=== PATIENT | male | born 1950 | race Two or more races ===

== ENCOUNTER 2023-03-07 14:15 | Outpatient (REF) | payer MEDICARE, OTHER, SELFPAY ==
[2023-03-07 15:47] LABS: MANUAL DIFF FLAG NO
[2023-03-07 16:01] LABS: Basophils Absolute Auto 0.1 X10*3/uL (0.0-0.2); Basophils Percent Auto 0.7 % (0-2); Eosinophils Percent Auto 10.8 % (0-4); Hematocrit 40.8 % (42.0-52.0); Hemoglobin 13.7 g/dl (14.0-18.0); Imm Gran Abs Auto 0.03 X10*3/uL (0.00-0.03); Imm Gran Pct Auto 0.3 % (0.0-0.4); Lymphocytes Absolute Auto 1.2 X10*3/uL (1.2-4.9); Lymphocytes Percent Auto 13.9 % (20-40); Mean Corpuscular HGB Conc 33.6 g/dl (31.0-36.0); Mean Corpuscular Hemoglobin 28.8 pg (27.0-33.0); Mean Corpuscular Volume 85.9 fL (80.0-98.0); Mean Platelet Volume 9.8 fL (9.4-12.4); Monocytes Absolute Auto 0.8 X10*3/uL (0.1-1.2); Neutrophils Absolute Auto 5.8 x10*3/uL (2.0-8.3); Neutrophils Percent Auto 65.3 % (45-73); Platelet Count 347 X10*3/uL (160-400); Red Blood Count 4.75 X10*6/uL (4.60-5.80); Red Cell Distribution Width 13.4 % (11.0-16.0); White Blood Count 8.9 X10*3/uL (4.8-10.8)
[2023-03-07 16:38] LABS: Alanine Aminotransferase 12 U/L (0-40); Albumin Level 4.1 g/dL (3.5-5.0); Alkaline Phosphatase 72 U/L (39-117); Anion Gap 12 (12-20); Aspartate Amino Transferase 15 U/L (5-37); Bilirubin Total 0.3 mg/dL (0.0-1.0); Blood Urea Nitrogen 21 mg/dL (9-16); C Reactive Protein 1.65 mg/dL (< or = 0.50); Calcium 9.1 mg/dL (8.4-10.2); Carbon Dioxide 25 mmol/L (22-29); Chloride 107 mmol/L (96-108); Estimated Glomerular Filt Rate 56; Glucose Random 122 mg/dL (60-115); Potassium 4.3 mmol/L (3.3-5.1); Sodium 140 mmol/L (135-145); Total Protein 6.5 g/dL (6.5-8.0)
[2023-03-07 16:42] LABS: Erythrocyte Sedimentation Rate 8 MM/HR (0-15)
[2023-03-07 16:44] LABS: Troponin-I High Sensitivity 4.4 ng/L (<3.5-35.0)
[2023-03-07 17:50] LABS: Appearance Urine Clear; Color Urine Dark Yellow; Glucose Urine UA Negative (Negative); Leukocyte Esterase Urine Negative (Negative); Nitrite Urine Negative (Negative); PH 5.5 (5.0-9.0); Specific Gravity - Urine >= 1.030 (1.005-1.025); Urine Blood Negative (Negative); Urine Ketones Negative (Negative); Urine Protein Trace mg/dL (Neg-Trace)
[2023-03-07 17:53] LABS: Bacteria Urine None Seen (None Seen); RBC Urine 0-2 /HPF (0-2); Squamous Epithelial Cell Urine 0-2 /HPF (0-2); WBC Urine 0-5 /HPF (0-5)
[2023-03-07 23:14] LABS: Protein/Creatinine Ratio, Ur 0.05 (<0.2); Total Protein Urine Random 16 mg/dL (<12)
[2023-03-08 08:29] LABS: HBS Num1 0.15 mIU/mL (0-7.99); HBc Num1 0.16 S/CO (0.00-0.79); HBsAGNum1 0.37 S/CO (0.00-0.99); Hepatitis A Antibody IgM 0.15 Index (0-0.79); Hepatitis B Core Antibody Nonreactive (Nonreactive); Hepatitis B Surface Antigen Negative (Negative); ~HepC Num1 0.19 S/CO (0.00-0.79); ~Hepatitis A Antibody IgM Nonreactive (Nonreactive); ~Hepatitis B Surface Antibody NONREACTIVE (Nonreactive); ~Hepatitis C Antibody Nonreactive (Nonreactive)
[2023-03-08 14:13] LABS: Complement C3 108 mg/dL (82-185)
[2023-03-09 16:58] LABS: TS Negative Control Passed; TS Panel A 0; TS Panel B 2; TS Positive Control Passed; TSpotTB Negative (Negative)
[2023-03-11 18:38] LABS: Lyme Abs Screen <0.90 index
[2023-03-12 23:43] LABS: Prot Elec - Albumin 3.9 g/dL (3.8-4.8); Prot Elec - Alpha1 0.3 g/dL (0.2-0.3); Prot Elec - Alpha2 0.7 g/dL (0.5-0.9); Prot Elec - Beta 1 0.4 g/dL (0.4-0.6); Prot Elec - Beta 2 0.3 g/dL (0.2-0.5); Prot Elec - Gamma 0.9 g/dL (0.8-1.7); Prot Elec - Total Protein 6.5 g/dL (6.1-8.1)
[2023-03-13 09:08] LABS: IgA 149 mg/dL (70-320); IgG 1106 mg/dL (600-1540); IgM 76 mg/dL (50-300)
[2023-03-13 13:33] LABS: DNAds, Crithidia Antibody Negative (Negative)
[2023-03-13 21:48] LABS: HLA B27 Negative (Negative)
[2023-03-14 17:10] LABS: Anti DNA DS Antibody 9 IU/mL; Antibody to SS-A Antigen <1.0 NEG AI (<1.0 NEG); Antibody to SS-B Antigen <1.0 NEG AI (<1.0 NEG); Myeloperoxidase Antibody 13.4 AI; Proteinase 3 PR3 Antibodies <1.0 AI
== END 2023-03-07 14:16 | disposition home or self-care (01) ==
LOC: HO.LAB 14:15
PROVIDERS: PCP Physician Assistant; Visit Provider Student in an Organized Health Care Education/Training Program
DX: M25.542 Pain in joints of left hand (principal); M32.9 Systemic lupus erythematosus, unspecified; I77.6 Arteritis, unspecified; D89.1 Cryoglobulinemia; I31.9 Disease of pericardium, unspecified; G89.29 Other chronic pain; M54.9 Dorsalgia, unspecified; K63.9 Disease of intestine, unspecified; M07.60 Enteropathic arthropathies, unspecified site; Z11.7 Encounter for testing for latent tuberculosis infection; Z11.59 Encounter for screening for other viral diseases; Z72.89 Other problems related to lifestyle
CPT/HCPCS: 80053; 81001; 82550; 82595; 82784; 84156; 84165; 84484; 85025; 85652; 86021; 86140; 86160; 86225; 86235; 86255; 86334; 86481; 86617; 86618; 86704; 86706; 86709; 86803; 86812; 87340; 99202

== ENCOUNTER 2023-06-12 14:39 | Outpatient (AMB) | payer MEDICARE, OTHER, SELFPAY ==
--- NOTE | 2023-06-12 14:48 | A.OFFVIS_ITS ---
Intake Vital Signs 06/12/23 14:49 Height 5 ft 8 in Weight 181 lb 10.574 oz BMI 27.6 BP 120/70 Blood Pressure Location Rt brachial Position Sitting Pulse 81 Pulse Source Pulse Oximeter Temp 97.8 F Temp Source Skin Pulse Oximetry (%) 96 Intake Visit Reasons: PsA Intake Note: * Pt seen today for PsA follow up. Last seen in February * C/o flare up mid April. * States fingers are worse Financial Adviser Required: No Accompanied by: Spouse Allergies bee venom protein (honey bee) Adverse Reaction (Unknown, Verified 06/12/23 14:54) Unknown Medication List - Last Reconciled 06/12/23 by Roxanne Cisse MD aspirin 325 mg PO DAILY triamcinolone acetonide 0.1% appl topical HPI HPI Comments History of Present Illness Details 72-year-old male with inflammatory arthritis returns for follow-up. Doing about the same overall. Continues to get attacks of pain and stiffness of his hands and forearms. Rapidly resolved with prednisone 20 mg for 2 days. Also the rashes on his fingers rapidly resolve with prednisone. Initial history: This is a 72-year-old male who presents for evaluation of multiple joint pain and swelling. The condition started years ago with pain and swelling affecting 1 joint or multiple joints at the same time like his elbow, wrist, hands, fingers, knees, ankles, feet. The pain lasts a few days to 1 week. Patient usually takes ibuprofen 600 mg 3 to 4 times a day with rapid resolution of the pain in 1-2 days but the swelling persists for about a week. He states that those flares have become much more frequent recently. Towards the end of last year he went to urgent care due to swelling from his left wrist going all the way up to his forearm. He was prescribed antibiotics with improvement in about 1 week. In the past he was prescribed prednisone by his PCP for similar attacks of joint pain with dramatic improvement. He states that 10 years ago he was having intermittent severe chest pain. He went to urgent care and was told he might have pericarditis and was advised to take high doses of by ibuprofen which gave him dramatic relief. He states that he still gets those attacks of chest pain 2 to 3 times a year rapidly resolved with ibuprofen. He mentions that he gets skin rashes in the umbilicus and lower abdomen as well as rashes on his fingers. Those were never formally assessed by a physician assistant surgery. Patient gets low back pain. Sometimes worse in the morning associated with stiffness, the stiffness can last all day. Patient also mentions that he is quite active. [place] takes care of horses, cats, dogs and his who has dementia. States that his daughter has Jin's thyroiditis and 2 sons have Crohn's disease. He denies any fevers or weight changes. Denies any blood or froth in urine. Most recent colonoscopy 2017 was unremarkable [facility] Medical History (Updated 06/12/23 @ 15:20 by Roxanne Cisse MD) Acute ill-defined cerebrovascular disease Acute pericarditis, unspecified Atopic dermatitis Diverticulitis of colon Ostium secundum type atrial septal defect P-ANCA and MPO antibodies positive Patent foramen ovale Pericarditis Surgical History Hx of tonsillectomy S/P colonoscopy Family History Maternal Grandmother Diabetes Sister Hx of breast cancer Hodgkin lymphoma Father Stomach disorder Daughter Jin's thyroiditis Son Crohn disease Son Crohn disease Social History Alcohol intake: current Alcohol intake frequency: holidays/special occasions only Patient Tobacco Use Status: Never used Tobacco Current occupational status: retired Current occupation: software development specialist [place] [facility] [place] arthralgias, Reports joint swelling and Reports stiffness Skin/Breast Reports rash Physical Exam Vital Signs: Last Vital Signs Temp 97.8 F 06/12/23 14:49 Pulse 81 06/12/23 14:49 BP 120/70 06/12/23 14:49 Pulse Ox 96 06/12/23 14:49 BMI result Body Mass Index 27.6 Const General: cooperative, healthy appearing and comfortable Nutritional Appearance: overweight Orientation/consciousness: patient oriented x3 Limitations: no limitations HEENT Head: Yes normocephalic and Yes atraumatic Resp Effort & Inspection: normal respiratory effort and able to speak in complete sentences Skin Other: Flaky scaly rash on the outer aspect of his right little finger, similar rash on his right thumb. Rashes on the umbilicus Neuro General: patient oriented x3 Extrem Other: Bilateral hyperextensible PIPs Results Reviewed Results Reviewed: Labs 09/2022? Shobha 1/SSA/SSB/Moss/TRANSPORTATION DEPARTMENT HEAD/HLA B27/CCP/RF/TPO all -ve DsDNA 9 (5-9) is indeterminate SWATI 1-320 homogeneous C4 8.8 (17.4-52.2) C3 96 CRP 4.8 (0-9.0) ESR 5 CPK 42 (35-232) Uric acid 6.0 CMP unremarkable TSH 2.49 FT4 1.3 CBC unremarkable except for:?? Mild lymphopenia 1.27 (1.32-3.57) Mild eosinophilia 0.86 (-.04-0.54) Assessment & Plan Assessment & Plan (1) Psoriatic arthritis: Code(s): L40.50 - Arthropathic psoriasis, unspecified Plan: This is a 72-year-old male who presents of multiple year history of recurrent attacks of migratory and sometimes additive inflammatory arthritis that resolves with NSAIDs or Prednsione. Positive family history of Jin thyroiditis in his daughter and 2 sons with Crohn's disease.? He has history of recurrent chest pain that was attributed to pericarditis resolves with high-dose ibuprofen but without formal evaluation. On exam he has rashes that are suspicious for psoriasis.? labs show positive SWATI, borderline dsDNA, low C4 with normal C3 and positive MPO.? RF/CCP negative, high inflammatory markers. 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 Patient agreed to proceed. Start methotrexate 20 mg once weekly plus folic acid 1 mg daily. If patient develops recurrent chest pain, will order a 2D echo. Advised patient to establish care with a physician assistant surgery to evaluate skin lesions on his fingers (2) P-ANCA and MPO antibodies positive: Code(s): R76.8 - Other specified abnormal immunological findings in serum Plan: Positive MPO antibodies, but no symptoms suggestive of vasculitis. Can be seen in IBD and spondyloarthropathies and other autoimmune rheumatic diseases. 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 Will monitor patient for side effects with frequent lab work. Advised patient to take folic acid daily to prevent complications of methotrexate. Plan I spent 26 minutes reviewing patient's chart, evaluating patient, ordering diagnostic workup, counseling patient and documenting in the chart Orders: Orders Complete Blood Count Auto Diff 6 Weeks L40.50 - Arthropathic psoriasis, unspecified Comprehensive Met. Panel 6 Weeks L40.50 - Arthropathic psoriasis, unspecified C Reactive Protein 6 Weeks L40.50 - Arthropathic psoriasis, unspecified Erythrocyte Sedimentation Rate 6 Weeks L40.50 - Arthropathic psoriasis, unspecified Complete Blood Count Auto Diff 12 Weeks L40.50 - Arthropathic psoriasis, unspecified Comprehensive Met. Panel 12 Weeks L40.50 - Arthropathic psoriasis, unspecified C Reactive Protein 12 Weeks L40.50 - Arthropathic psoriasis, unspecified Erythrocyte Sedimentation Rate 12 Weeks L40.50 - Arthropathic psoriasis, unspecified Medications: New methotrexate sodium 20 mg (8 x 2.5 mg) PO QWEEK 96 tabs 0RF folic acid 1 mg PO DAILY 90 tabs 1RF Coding Level of Care Code Est Pt Level 4 (19619) Diagnoses Psoriatic arthritis L40.50 P-ANCA and MPO antibodies positive R76.8 intermediate methotrexate user Z79.631
[2023-06-12 14:49] VITALS: BP 120/70; PULSE 81; TEMP 36.6; O2SAT 96; BMI 27.6
== END 2023-06-12 15:11 | disposition home or self-care (01) ==
PROVIDERS: PCP Physician Assistant; Visit Provider Student in an Organized Health Care Education/Training Program
DX: L40.50 Arthropathic psoriasis, unspecified (principal); R76.8 Other specified abnormal immunological findings in serum; Z79.631 Long term (current) use of antimetabolite agent
CPT/HCPCS: 99214

== ENCOUNTER → 2023-06-12 14:39 | Outpatient (BNVA) | payer MEDICARE, OTHER, SELFPAY | PROVIDERS: PCP Physician Assistant; Visit Provider Student in an Organized Health Care Education/Training Program | DX: L40.50 Arthropathic psoriasis, unspecified (principal); R76.8 Other specified abnormal immunological findings in serum; Z79.631 Long term (current) use of antimetabolite agent | CPT/HCPCS: 99212 ==

== ENCOUNTER 2023-09-11 14:00 | Outpatient (AMB) | payer MEDICARE, OTHER, SELFPAY ==
--- NOTE | 2023-09-11 14:00 | A.OFFVIS_ITS ---
Intake Vital Signs 09/11/23 14:01 Height 5 ft 8 in Weight 179 lb 14.355 oz BMI 27.4 BP 108/70 Blood Pressure Location Lt brachial Position Sitting Pulse 78 Pulse Source Pulse Oximeter Temp 97.5 F Temp Source Skin Pulse Oximetry (%) 98 Oxygen Delivery Method Room Air Intake Visit Reasons: PSA Intake Note: Patient presents today to follow up on PsA. Allergies bee venom protein (honey bee) Adverse Reaction (Unknown, Verified 06/12/23 14:54) Unknown Medication List - Last Reconciled 09/11/23 by Roxanne Cisse MD aspirin 325 mg PO DAILY folic acid 1 mg PO DAILY methotrexate sodium 20 mg (8 x 2.5 mg) PO QWEEK HPI HPI Comments History of Present Illness Details 72-year-old male with psoriatic arthriti s presents for follow-up. Has been taking methotrexate 8 tabs weekly since last visit. States that he feels much better overall. Flares of joint pain are much less frequent. He had to use ibuprofen only 3 times since last visit. Rash on his right hand completely resolved. Gets very mild fatigue day after he takes methotrexate Initial history: This is a 72-year-old male who presents for evaluation of multiple joint pain and swelling. The condition started years ago with pain and swelling affecting 1 joint or multiple joints at the same time like his elbow, wrist, hands, fingers, knees, ankles, feet. The pain lasts a few days to 1 week. Patient usually takes ibuprofen 600 mg 3 to 4 times a day with rapid resolution of the pain in 1-2 days but the swelling persists for about a week. He states that those flares have become much more frequent recently. Towards the end of last year he went to urgent care due to swelling from his left wrist going all the way up to his forearm. He was prescribed antibiotics with improvement in about 1 week. In the past he was prescribed prednisone by his PCP for similar attacks of joint pain with dramatic improvement. He states that 10 years ago he was having intermittent severe chest pain. He went to urgent care and was told he might have pericarditis and was advised to take high doses of by ibuprofen which gave him dramatic relief. He states that he still gets those attacks of chest pain 2 to 3 times a year rapidly resolved with ibuprofen. He mentions that he gets skin rashes in the umbilicus and lower abdomen as well as rashes on his fingers. Those were never formally assessed by a pneumatic tube repairer. Patient gets low back pain. Sometimes worse in the morning associated with stiffness, the stiffness can last all day. Patient also mentions that he is quite active. [place] takes care of horses, cats, dogs and his who has dementia. States that his daughter has Jin's thyroiditis and 2 sons have Crohn's disease. He denies any fevers or weight changes. Denies any blood or froth in urine. Most recent colonoscopy 2017 was unremarkable [facility] Medical History P-ANCA and MPO antibodies positive Pericarditis Ostium secundum type atrial septal defect Patent foramen ovale Atopic dermatitis Diverticulitis of colon Acute ill-defined cerebrovascular disease Acute pericarditis, unspecified Surgical History Hx of tonsillectomy S/P colonoscopy Family History Maternal Grandmother Diabetes Sister Hx of breast cancer Hodgkin lymphoma Father Stomach disorder Daughter Jin's thyroiditis Son Crohn disease Son Crohn disease Social History Alcohol intake: current Alcohol intake frequency: holidays/special occasions only Patient Tobacco Use Status: Never used Tobacco Current occupational status: retired 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 Review of Systems [facility] [place] Denies arthralgias and Denies joint swelling Skin/Breast Denies rash Physical Exam Vital Signs: Last Vital Signs Temp 97.5 F 09/11/23 14:01 Pulse 78 09/11/23 14:01 BP 108/70 09/11/23 14:01 Pulse Ox 98 09/11/23 14:01 Oxygen Delivery Method Room Air 09/11/23 14:01 BMI result Body Mass Index 27.4 Const General: cooperative, healthy appearing and comfortable Nutritional Appearance: overweight Orientation/consciousness: patient oriented x3 Limitations: no limitations HEENT Head: Yes normocephalic and Yes atraumatic Resp Effort & Inspection: normal respiratory effort and able to speak in complete sentences Skin Other: Rashes on his hands entirely resolved Neuro General: patient oriented x3 Extrem Other: Bilateral hyperextensible PIPs Results Reviewed Results Reviewed: Labs 09/2022? Shobha 1/SSA/SSB/Moss/RESOURCE MANAGEMENT SPECIALIST/HLA B27/CCP/RF/TPO all -ve DsDNA 9 (5-9) is indeterminate SWATI 1-320 homogeneous C4 8.8 (17.4-52.2) C3 96 CRP 4.8 (0-9.0) ESR 5 CPK 42 (35-232) Uric acid 6.0 CMP unremarkable TSH 2.49 FT4 1.3 CBC unremarkable except for:?? Mild lymphopenia 1.27 (1.32-3.57) Mild eosinophilia 0.86 (-.04-0.54) Assessment & Plan Assessment & Plan (1) Psoriatic arthritis: Comment: dx 05/2023 MTX 05/2023 effective Code(s): L40.50 - Arthropathic psoriasis, unspecified Plan: This is a 72-year-old male with psoriatic arthritis who presents for follow-up. Doing much better on methotrexate 20 mg weekly, much less flares of inflammatory arthritis and skin rash entirely resolved. Inflammatory markers trending down Continue methotrexate 20 mg weekly but split dose 12:24 hours apart. Continue folic acid 1 mg daily Labs before next visit in 3 months (2) P-ANCA and MPO antibodies positive: Code(s): R76.8 - Other specified abnormal immunological findings in serum Plan: Positive MPO antibodies, but no symptoms suggestive of vasculitis. Can be seen in IBD and spondyloarthropathies and other autoimmune rheumatic diseases. (3) residential methotrexate user: Code(s): Z79.631 - residential (current) use of antimetabolite agent Plan: Monitor safety labs (4) Immunization counseling: Code(s): Z71.85 - Encounter for immunization safety counseling Plan: Discussed ACR vaccination guidelines for adults with autoimmune rheumatic disease. Patient will have his flu shot and COVID booster this week. Advised patient to hold methotrexate for 1 dose after the vaccine Plan I spent 26 minutes reviewing patient's chart, evaluating patient, ordering diagnostic workup, counseling patient and documenting in the chart Orders: Orders Complete Blood Count Auto Diff 3 Months Z79.631 - order entry specialist (current) use of antimetabolite agent Erythrocyte Sedimentation Rate 3 Months Z79.631 - order entry specialist (current) use of antimetabolite agent Comprehensive Met. Panel 3 Months Z79.631 - order entry specialist (current) use of antimetabolite agent C Reactive Protein 3 Months Z79.631 - order entry specialist (current) use of antimetabolite agent Medications: Changed From methotrexate sodium 20 mg (8 x 2.5 mg) PO QWEEK 96 tabs 0RF To methotrexate sodium split dose into 4 tabs twice 12-24 hours apart 20 mg (8 x 2.5 mg) PO QWEEK 96 tabs 0RF Refilled folic acid 1 mg PO DAILY 90 tabs 1RF Coding Level of Care Code Est Pt Level 4 (53230) Diagnoses Psoriatic arthritis L40.50 P-ANCA and MPO antibodies positive R76.8 order entry specialist methotrexate user Z79.631 Immunization counseling Z71.85
[2023-09-11 14:01] VITALS: BP 108/70; PULSE 78; TEMP 36.4; O2SAT 98; BMI 27.4
== END 2023-09-11 14:17 | disposition home or self-care (01) ==
PROVIDERS: PCP Physician Assistant; Visit Provider Student in an Organized Health Care Education/Training Program
DX: L40.50 Arthropathic psoriasis, unspecified (principal); R76.8 Other specified abnormal immunological findings in serum; Z79.631 Long term (current) use of antimetabolite agent; Z71.85 Encounter for immunization safety counseling
CPT/HCPCS: 99214

== ENCOUNTER → 2023-09-11 14:00 | Outpatient (BNVA) | payer MEDICARE, OTHER, SELFPAY | PROVIDERS: PCP Physician Assistant; Visit Provider Student in an Organized Health Care Education/Training Program | DX: L40.50 Arthropathic psoriasis, unspecified (principal); R76.8 Other specified abnormal immunological findings in serum; Z79.631 Long term (current) use of antimetabolite agent; Z71.85 Encounter for immunization safety counseling | CPT/HCPCS: 99212 ==

== ENCOUNTER 2023-12-18 14:02 | Outpatient (AMB) | payer MEDICARE, OTHER, SELFPAY ==
--- NOTE | 2023-12-18 14:06 | MHC.OFFVIS ---
Intake Vital Signs 12/18/23 14:11 Height 5 ft 8 in Weight 176 lb 5.917 oz BMI 26.8 BP 140/62 H Blood Pressure Location Rt brachial Position Sitting Pulse 80 Pulse Source Pulse Oximeter Temp 97.4 F Temp Source Skin Pulse Oximetry (%) 97 Oxygen Delivery Method Room Air Intake Visit Reasons: PsA Intake Note: Patient last seen 09/11/23 presents today for follow up and test results. Needs MTX refill today. Contracts Manager Required: No Accompanied by: Self / Same As Patient Allergies bee venom protein (honey bee) Adverse Reaction (Unknown, Verified 12/18/23 14:11) Unknown Medication List - Last Reconciled 12/18/23 by Roxanne Cisse MD aspirin 325 mg PO DAILY folic acid 1 mg PO DAILY methotrexate sodium 20 mg (8 x 2.5 mg) PO QWEEK HPI HPI Comments History of Present Illness Details 72-year-old male with psoriatic arthritis presents for follow-up. On methotrexate 20 mg weekly split dose. He states that he had a couple episodes of joint pain and swelling. The 1st episode lasted 1 day and rapidly controlled with ibuprofen. He had another episode and had to take prednisone 20 mg x 2 day with rapid resolution of symptoms. He has not had any recurrence of the skin rashes on his hands. States that he has been having itchy rashes around his belly button and on his butt crack. Does not recall any bug bites. States that a couple of times he would have generalized fatigue and headaches the day after he takes methotrexate. But this has not been consistent. Of note he had 8 dental abscess, tooth was extracted and he was started on an Augmentin course. Finished last week. Initial history: This is a 72-year-old male who presents for evaluation of multiple joint pain and swelling. The condition started years ago with pain and swelling affecting 1 joint or multiple joints at the same time like his elbow, wrist, hands, fingers, knees, ankles, feet. The pain lasts a few days to 1 week. Patient usually takes ibuprofen 600 mg 3 to 4 times a day with rapid resolution of the pain in 1-2 days but the swelling persists for about a week. He states that those flares have become much more frequent recently. Towards the end of last year he went to urgent care due to swelling from his left wrist going all the way up to his forearm. He was prescribed antibiotics with improvement in about 1 week. In the past he was prescribed prednisone by his PCP for similar attacks of joint pain with dramatic improvement. He states that 10 years ago he was having intermittent severe chest pain. He went to urgent care and was told he might have pericarditis and was advised to take high doses of by ibuprofen which gave him dramatic relief. He states that he still gets those attacks of chest pain 2 to 3 times a year rapidly resolved with ibuprofen. He mentions that he gets skin rashes in the umbilicus and lower abdomen as well as rashes on his fingers. Those were never formally assessed by a steward/stewardess room. Patient gets low back pain. Sometimes worse in the morning associated with stiffness, the stiffness can last all day. Patient also mentions that he is quite active. [place] takes care of horses, cats, dogs and his who has dementia. States that his daughter has Jin's thyroiditis and 2 sons have Crohn's disease. He denies any fevers or weight changes. Denies any blood or froth in urine. Most recent colonoscopy 2018 was unremarkable [facility] Medical History P-ANCA and MPO antibodies positive Pericarditis Ostium secundum type atrial septal defect Patent foramen ovale Atopic dermatitis Diverticulitis of colon Acute ill-defined cerebrovascular disease Acute pericarditis, unspecified Surgical History Hx of tonsillectomy S/P colonoscopy Family History Maternal Grandmother Diabetes Sister Hx of breast cancer Hodgkin lymphoma Father Stomach disorder Daughter Jin's thyroiditis Son Crohn disease Son Crohn disease Social History Alcohol intake: current Alcohol intake frequency: holidays/special occasions only Patient Tobacco Use Status: Never used Tobacco Current occupational status: retired Current occupation: windows software developer Review of Systems [facility] [place] Reports arthralgias and Reports joint swelling Skin/Breast Reports pruritus and Reports rash Physical Exam Const General: cooperative, healthy appearing and comfortable Nutritional Appearance: overweight Orientation/consciousness: patient oriented x3 Limitations: no limitations HEENT Head: Yes normocephalic and Yes atraumatic Resp Effort & Inspection: normal respiratory effort and able to speak in complete sentences Skin Other: Rashes on his hands entirely resolved Rash around his belly button area Rash on his butt crack. Neuro General: patient oriented x3 Extrem Other: Bilateral hyperextensible PIPs No active synovitis today Results Reviewed Results Reviewed: Labs 09/2022? Shobha 1/SSA/SSB/Moss/COLORER/HLA B27/CCP/RF/TPO all -ve DsDNA 9 (5-9) is indeterminate SWATI 1-320 homogeneous C4 8.8 (17.4-52.2) C3 96 CRP 4.8 (0-9.0) ESR 5 CPK 42 (35-232) Uric acid 6.0 CMP unremarkable TSH 2.49 FT4 1.3 CBC unremarkable except for:?? Mild lymphopenia 1.27 (1.32-3.57) Mild eosinophilia 0.86 (-.04-0.54) Assessment & Plan Assessment & Plan (1) Psoriatic arthritis: Comment: dx 05/2023 MTX 05/2023 effective Code(s): L40.50 - Arthropathic psoriasis, unspecified Plan: This is a 72-year-old male with psoriatic arthritis who presents for follow-up. Doing well methotrexate 20 mg weekly, much less flares of inflammatory arthritis and skin rash entirely resolved. Continue methotrexate 20 mg weekly but split dose 12:24 hours apart. Continue folic acid 1 mg daily Advised patient to call the clinic if he persistently gets side effects the day after he takes methotrexate. We will consider dextromethorphan for methotrexate flu Labs before next visit in 4 months (2) P-ANCA and MPO antibodies positive: Code(s): R76.8 - Other specified abnormal immunological findings in serum Plan: Positive MPO antibodies, but no symptoms suggestive of vasculitis. Can be seen in IBD and spondyloarthropathies and other autoimmune rheumatic diseases. (3) intermodal truck driver methotrexate user: Code(s): Z79.631 - [facility] (current) use of antimetabolite agent Plan: Monitor safety labs (4) Immunization counseling: Code(s): Z71.85 - Encounter for immunization safety counseling Plan: Discussed ACR vaccination guidelines for adults with autoimmune rheumatic disease. Patient will have his flu shot and COVID booster this week. Advised patient to hold methotrexate for 1 dose after the vaccine (5) Rash and nonspecific skin eruption: Code(s): R21 - Rash and other nonspecific skin eruption Plan: Looks allergic in nature. Can be an allergic reaction to his belt buckle. Advised patient not to wear any belts with a metal belt buckle for about a month and observe his symptoms. If no improvement, we will prescribe triamcinolone cream Plan I spent 26 minutes reviewing patient's chart, evaluating patient, ordering diagnostic workup, counseling patient and documenting in the chart Orders: Orders Complete Blood Count Auto Diff 4 Months Z79.63 - intermodal truck driver (current) use of antimetabolite agent C Reactive Protein 4 Months Z79.631 - intermodal truck driver (current) use of antimetabolite agent Comprehensive Met. Panel 4 Months Z.63 - [facility] (current) use of antimetabolite agent Erythrocyte Sedimentation Rate 4 Months Z79.631 - intermodal truck driver (current) use of antimetabolite agent Medications: Refilled methotrexate sodium split dose into 4 tabs twice 12-24 hours apart 20 mg (8 x 2.5 mg) PO QWEEK 128 tabs 0RF Coding Level of Care Code Est Pt Level 4 (20494) Diagnoses Psoriatic arthritis L40.50 P-ANCA and MPO antibodies positive R76.8 intermodal truck driver methotrexate user Z79.631 Immunization counseling Z71.85 Rash and nonspecific skin eruption R21
[2023-12-18 14:11] VITALS: BP 140/62; PULSE 80; TEMP 36.3; O2SAT 97; BMI 26.8
== END 2023-12-18 14:26 | disposition home or self-care (01) ==
PROVIDERS: PCP Physician Assistant; Visit Provider Student in an Organized Health Care Education/Training Program
DX: L40.50 Arthropathic psoriasis, unspecified (principal); R76.8 Other specified abnormal immunological findings in serum; Z79.631 Long term (current) use of antimetabolite agent; Z71.85 Encounter for immunization safety counseling; R21 Rash and other nonspecific skin eruption
CPT/HCPCS: 99214

== ENCOUNTER → 2023-12-18 14:02 | Outpatient (BNVA) | payer MEDICARE, OTHER, SELFPAY | PROVIDERS: PCP Physician Assistant; Visit Provider Student in an Organized Health Care Education/Training Program | DX: L40.50 Arthropathic psoriasis, unspecified (principal); R76.8 Other specified abnormal immunological findings in serum; R21 Rash and other nonspecific skin eruption; Z79.631 Long term (current) use of antimetabolite agent; Z71.85 Encounter for immunization safety counseling | CPT/HCPCS: 99212 ==

== ENCOUNTER 2024-04-15 13:18 | Outpatient (AMB) | payer MEDICARE, OTHER, SELFPAY ==
--- NOTE | 2024-04-15 13:29 | MHC.OFFVIS ---
Vital Signs 04/15/24 13:36 Height 5 ft 8 in Weight 172 lb 9.951 oz BMI 26.2 BP 118/80 Blood Pressure Location Lt brachial Position Sitting Pulse 60 Pulse Oximetry (%) 100 Intake Visit Reasons: RA Intake Note: Patient last seen 12/18/23 presents today for follow up and test results. Hand Collator Required: No Accompanied by: Self / Same As Patient Allergies bee venom protein (honey bee) Adverse Reaction (Unknown, Verified 04/15/24 13:29) Unknown Medication List - Last Reconciled 04/15/24 by Roxanne Cisse MD aspirin 325 mg PO DAILY folic acid 1 mg PO DAILY ibuprofen 400 mg PO .bid PRN methotrexate sodium 20 mg (8 x 2.5 mg) PO QWEEK HPI Comments Details: 72-year-old male with psoriatic arthritis presents for follow-up. On methotrexate 20 mg weekly split dose. States that he continues to feel about the same. Continues to have intermittent flare-ups of joint pain followed by swelling, it could affect his elbows, knees, hands. He would have at least a couple of episode a month, they could lasts 1 or 2 days up to 1 week. Most recently has been having right knee pain and swelling it has been ongoing for the last week. When he has a flare-up he would take ibuprofen 400 mg times 5 times a day. Overall he uses ibuprofen about half the month. Has not had any new rashes. Initial history: This is a 72-year-old male who presents for evaluation of multiple joint pain and swelling. The condition started years ago with pain and swelling affecting 1 joint or multiple joints at the same time like his elbow, wrist, hands, fingers, knees, ankles, feet. The pain lasts a few days to 1 week. Patient usually takes ibuprofen 600 mg 3 to 4 times a day with rapid resolution of the pain in 1-2 days but the swelling persists for about a week. He states that those flares have become much more frequent recently. Towards the end of last year he went to urgent care due to swelling from his left wrist going all the way up to his forearm. He was prescribed antibiotics with improvement in about 1 week. In the past he was prescribed prednisone by his PCP for similar attacks of joint pain with dramatic improvement. He states that 10 years ago he was having intermittent severe chest pain. He went to urgent care and was told he might have pericarditis and was advised to take high doses of by ibuprofen which gave him dramatic relief. He states that he still gets those attacks of chest pain 2 to 3 times a year rapidly resolved with ibuprofen. He mentions that he gets skin rashes in the umbilicus and lower abdomen as well as rashes on his fingers. Those were never formally assessed by a career technology teacher. Patient gets low back pain. Sometimes worse in the morning associated with stiffness, the stiffness can last all day. Patient also mentions that he is quite active. [place] takes care of horses, cats, dogs and his who has dementia. States that his daughter has Jin's thyroiditis and 2 sons have Crohn's disease. He denies any fevers or weight changes. Denies any blood or froth in urine. Most recent colonoscopy 2017 was unremarkable [facility] Medical History P-ANCA and MPO antibodies positive Pericarditis Ostium secundum type atrial septal defect Patent foramen ovale Atopic dermatitis Diverticulitis of colon Acute ill-defined cerebrovascular disease Acute pericarditis, unspecified Surgical History Hx of tonsillectomy S/P colonoscopy Family History Maternal Grandmother Diabetes Sister Hx of breast cancer Hodgkin lymphoma Father Stomach disorder Daughter Jin's thyroiditis Son Crohn disease Son Crohn disease Social History Alcohol intake: current Alcohol intake frequency: holidays/special occasions only Patient Tobacco Use Status: Never used Tobacco Current occupational status: retired Current occupation: senior lead software engineer Review of Systems [facility] [place]ralgias and Reports joint swelling Physical Exam Vital Signs: Last Vital Signs Pulse 60 04/15/24 13:36 BP 118/80 04/15/24 13:36 Pulse Ox 100 04/15/24 13:36 BMI result Body Mass Index 26.2 Const General: cooperative, healthy appearing and comfortable Nutritional Appearance: overweight Orientation/consciousness: patient oriented x3 Limitations: no limitations HEENT Head: Yes normocephalic and Yes atraumatic Resp Effort & Inspection: normal respiratory effort and able to speak in complete sentences Neuro General: patient oriented x3 Extrem Other: Bilateral hyperextensible PIPs Mild swelling just medial to the right medial epicondyle that is mildly tender to palpation Right knee swelling, tenderness warmth and pain with full flexion and full extension Results Reviewed Results Reviewed: Labs 09/2022? Shobha 1/SSA/SSB/Moss/SMALL BUSINESS SALES REPRESENTATIVE/HLA B27/CCP/RF/TPO all -ve DsDNA 9 (5-9) is indeterminate SWATI 1-320 homogeneous C4 8.8 (17.4-52.2) C3 96 CRP 4.8 (0-9.0) ESR 5 CPK 42 (35-232) Uric acid 6.0 CMP unremarkable TSH 2.49 FT4 1.3 CBC unremarkable except for:?? Mild lymphopenia 1.27 (1.32-3.57) Mild eosinophilia 0.86 (-.04-0.54) Assessment & Plan Assessment & Plan (1) Psoriatic arthritis: Comment: dx 05/2023 MTX 05/2023 effective Code(s): L40.50 - Arthropathic psoriasis, unspecified Category: Medical Plan: This is a 72-year-old male with psoriatic arthritis who presents for follow-up. Doing reasonably better overall since methotrexate was started however he continues to have intermittent episodes of synovitis requiring use of ibuprofen. He does not use prednisone. Skin rash on his hands entirely resolved since methotrexate was started. Discussed with patient. His condition is not fully controlled. Will increase his methotrexate to 25 mg weekly and change it to subcutaneous route. Continue folic acid 1 mg daily. Advised patient to call the clinic if he develops any side effects that are suggestive of methotrexate flu. Can consider dextromethorphan Labs before next visit in 4 months (2) P-ANCA and MPO antibodies positive: Code(s): R76.8 - Other specified abnormal immunological findings in serum Category: Medical Plan: Positive MPO antibodies, but no symptoms suggestive of vasculitis. Can be seen in IBD and spondyloarthropathies and other autoimmune rheumatic diseases. (3) termite treater helper methotrexate user: Code(s): Z79.631 - snf (current) use of antimetabolite agent Category: Medical Plan: Monitor safety labs Plan I spent 26 minutes reviewing patient's chart, evaluating patient, ordering diagnostic workup, counseling patient and documenting in the chart Orders: Orders Complete Blood Count Auto Diff 4 Months Z79.631 - snf (current) use of antimetabolite agent C Reactive Protein 4 Months Z79.631 - snf (current) use of antimetabolite agent Comprehensive Met. Panel 4 Months Z79.631 - termite treater helper (current) use of antimetabolite agent Erythrocyte Sedimentation Rate 4 Months Z79.631 - termite treater helper (current) use of antimetabolite agent Coding Level of Care Code Est Pt Level 4 (40276) Diagnoses Psoriatic arthritis L40.50 P-ANCA and MPO antibodies positive R76.8 termite treater helper methotrexate user Z79.631
[2024-04-15 13:36] VITALS: BP 118/80; PULSE 60; O2SAT 100; BMI 26.2
== END 2024-04-15 13:56 | disposition home or self-care (01) ==
LOC: HO.RHE 13:28
PROVIDERS: PCP Physician Assistant; Visit Provider Student in an Organized Health Care Education/Training Program
DX: L40.50 Arthropathic psoriasis, unspecified (principal); R76.8 Other specified abnormal immunological findings in serum; Z79.631 Long term (current) use of antimetabolite agent
CPT/HCPCS: 99214

== ENCOUNTER → 2024-04-15 13:28 | Outpatient (BNVA) | payer MEDICARE, OTHER, SELFPAY | PROVIDERS: PCP Physician Assistant; Visit Provider Student in an Organized Health Care Education/Training Program | DX: L40.50 Arthropathic psoriasis, unspecified (principal); Z79.631 Long term (current) use of antimetabolite agent; R76.8 Other specified abnormal immunological findings in serum | CPT/HCPCS: 99212 ==

== ENCOUNTER 2024-08-17 13:45 | Outpatient (AMB) | payer MEDICARE, OTHER, SELFPAY ==
[2024-08-17 13:50] VITALS: BP 110/72; PULSE 71; O2SAT 98; BMI 25.5
--- NOTE | 2024-08-17 13:50 | MHC.OFFVIS ---
Vital Signs 08/17/24 13:50 Height 5 ft 8 in Weight 167 lb 15.876 oz BMI 25.5 BP 110/72 Blood Pressure Location Rt brachial Position Sitting Pulse 71 Pulse Source Pulse Oximeter Pulse Oximetry (%) 98 Oxygen Delivery Method Room Air Intake Visit Reasons: PsA Intake Note: Patient last seen by Doctor Roxanne Cisse on 04/15/24. Patient presents today for PsA follow up. Allergies bee venom protein (honey bee) Adverse Reaction (Unknown, Verified 08/17/24 13:51) Unknown Medication List - Last Reconciled 08/17/24 by Roxanne Cisse MD aspirin 325 mg PO DAILY folic acid 1 mg PO DAILY ibuprofen 400 mg PO .bid PRN insulin syringe-needle U-100 (BD Insulin Syringe) Use weekly with methotrexate methotrexate sodium 20 mg (8 x 2.5 mg) PO QWEEK methotrexate sodium 25 mg subcut QWEEK HPI Comments Details: 73-year-old male with psoriatic arthritis presents for follow-up. After last visit we advanced his methotrexate to 25 mg subcutaneously once weekly. He states that it is well tolerated but he feels slight malaise and decreased appetite the following the injection. He states that his joints are doing much better overall. He is having much less frequent flare-ups, he has noted significantly reduced inflammation. He has been using ibuprofen only as needed but for other arthritic pains such as low back pain. He states that he had a couple of episodes of bilateral upper and lower eyelid swelling. He went to an eye doctor, states that no specific diagnosis was given. He states that he had multiple allergies as a child and used to receive allergy shots until he was in his 20s. Said he continues to develop significant reactions to different allergens Initial history: This is a 72-year-old male who presents for evaluation of multiple joint pain and swelling. The condition started years ago with pain and swelling affecting 1 joint or multiple joints at the same time like his elbow, wrist, hands, fingers, knees, ankles, feet. The pain lasts a few days to 1 week. Patient usually takes ibuprofen 600 mg 3 to 4 times a day with rapid resolution of the pain in 1-2 days but the swelling persists for about a week. He states that those flares have become much more frequent recently. Towards the end of last year he went to urgent care due to swelling from his left wrist going all the way up to his forearm. He was prescribed antibiotics with improvement in about 1 week. In the past he was prescribed prednisone by his PCP for similar attacks of joint pain with dramatic improvement. He states that 10 years ago he was having intermittent severe chest pain. He went to urgent care and was told he might have pericarditis and was advised to take high doses of by ibuprofen which gave him dramatic relief. He states that he still gets those attacks of chest pain 2 to 3 times a year rapidly resolved with ibuprofen. He mentions that he gets skin rashes in the umbilicus and lower abdomen as well as rashes on his fingers. Those were never formally assessed by a lopper. Patient gets low back pain. Sometimes worse in the morning associated with stiffness, the stiffness can last all day. Patient also mentions that he is quite active. [place] takes care of horses, cats, dogs and his who has dementia. States that his daughter has Jin's thyroiditis and 2 sons have Crohn's disease. He denies any fevers or weight changes. Denies any blood or froth in urine. Most recent colonoscopy 2018 was unremarkable [facility] Medical History P-ANCA and MPO antibodies positive Pericarditis Ostium secundum type atrial septal defect Patent foramen ovale Atopic dermatitis Diverticulitis of colon Acute ill-defined cerebrovascular disease Acute pericarditis, unspecified Surgical History Hx of tonsillectomy S/P colonoscopy Family History Maternal Grandmother Diabetes Sister Hx of breast cancer Hodgkin lymphoma Father Stomach disorder Daughter Jin's thyroiditis Son Crohn disease Son Crohn disease Social History Alcohol intake: current Alcohol intake frequency: holidays/special occasions only Patient Tobacco Use Status: Never used Tobacco Current occupational status: retired Current occupation: software lead Review of Systems [facility] [place] Denies arthralgias, Denies joint swelling and Denies stiffness Skin/Breast Reports rash Physical Exam Vital Signs: Last Vital Signs Pulse 71 08/17/24 13:50 BP 110/72 08/17/24 13:50 Pulse Ox 98 08/17/24 13:50 Oxygen Delivery Method Room Air 08/17/24 13:50 BMI result Body Mass Index 25.5 Const General: cooperative, healthy appearing and comfortable Nutritional Appearance: overweight Orientation/consciousness: patient oriented x3 Limitations: no limitations HEENT Head: Yes normocephalic and Yes atraumatic Resp Effort & Inspection: normal respiratory effort and able to speak in complete sentences Neuro General: patient oriented x3 Extrem Other: Bilateral hyperextensible PIPs No active synovitis today Results Reviewed Results Reviewed: Labs 09/2022? Shobha 1/SSA/SSB/Moss/SHELL TRIM OPERATOR/HLA B27/CCP/RF/TPO all -ve DsDNA 9 (5-9) is indeterminate SWATI 1-320 homogeneous C4 8.8 (17.4-52.2) C3 96 CRP 4.8 (0-9.0) ESR 5 CPK 42 (35-232) Uric acid 6.0 CMP unremarkable TSH 2.49 FT4 1.3 CBC unremarkable except for:?? Mild lymphopenia 1.27 (1.32-3.57) Mild eosinophilia 0.86 (-.04-0.54) Assessment & Plan Assessment & Plan (1) Psoriatic arthritis: Comment: dx 05/2023 MTX 05/2023 partially effective advanced to 25 mg subcu 03/2024 effective Code(s): L40.50 - Arthropathic psoriasis, unspecified Category: Medical Plan: This is a 73-year-old male with psoriatic arthritis who presents for follow-up. Doing much better since methotrexate was advanced to 25 mg subcutaneously. Gets minimal MTX flu symptoms the day after she takes methotrexate but symptoms are mild and patient is not interested in adding dextromethorphan. Continue current treatment Labs before next visit in 4 months (2) P-ANCA and MPO antibodies positive: Code(s): R76.8 - Other specified abnormal immunological findings in serum Category: Medical Plan: Positive MPO antibodies, but no symptoms suggestive of vasculitis. Can be seen in IBD and spondyloarthropathies and other autoimmune rheumatic diseases. (3) retirement methotrexate user: Code(s): Z79.631 - retirement (current) use of antimetabolite agent Category: Medical Plan: Monitor safety labs (4) Swollen eyelid: Code(s): H02.849 - Edema of unspecified eye, unspecified eyelid Category: Medical Qualifiers: Laterality: unspecified laterality Qualified Code(s): H02.849 - Edema of unspecified eye, unspecified eyelid Plan: Ring current episodes of bilateral upper and lower eyelid swelling. History of multiple allergies as a child. Advised patient establish care with an pre press manager Plan I spent 26 minutes reviewing patient's chart, evaluating patient, ordering diagnostic workup, counseling patient and documenting in the chart Orders: Orders Complete Blood Count Auto Diff 4 Months L40.50 - Arthropathic psoriasis, unspecified, Z79.631 - exterminator helper termite (current) use of antimetabolite agent Comprehensive Met. Panel 4 Months L40.50 - Arthropathic psoriasis, unspecified, Z79.631 - exterminator helper termite (current) use of antimetabolite agent C Reactive Protein 4 Months L40.50 - Arthropathic psoriasis, unspecified, Z79.631 - retirement (current) use of antimetabolite agent Erythrocyte Sedimentation Rate 4 Months L40.50 - Arthropathic psoriasis, unspecified, Z79.631 - retirement (current) use of antimetabolite agent Medications: Refilled insulin syringe-needle U-100 (BD Insulin Syringe) Use weekly with methotrexate 10 ea 2RF methotrexate sodium 25 mg subcut QWEEK 4 mL 3RF Coding Level of Care Code Est Pt Level 4 (27925) Diagnoses Psoriatic arthritis L40.50 P-ANCA and MPO antibodies positive R76.8 exterminator helper termite methotrexate user Z79.631 Swelling of eyelid, unspecified laterality H02.849 Laterality: unspecified laterality
== END 2024-08-17 14:29 | disposition home or self-care (01) ==
LOC: HO.RHE 13:45
PROVIDERS: PCP Physician Assistant; Visit Provider Student in an Organized Health Care Education/Training Program
DX: L40.50 Arthropathic psoriasis, unspecified (principal); R76.8 Other specified abnormal immunological findings in serum; Z79.631 Long term (current) use of antimetabolite agent; H02.849 Edema of unspecified eye, unspecified eyelid
CPT/HCPCS: 99214

== ENCOUNTER → 2024-08-17 13:45 | Outpatient (BNVA) | payer MEDICARE, OTHER, SELFPAY | PROVIDERS: PCP Physician Assistant; Visit Provider Student in an Organized Health Care Education/Training Program | DX: L40.50 Arthropathic psoriasis, unspecified (principal); R76.8 Other specified abnormal immunological findings in serum; H02.849 Edema of unspecified eye, unspecified eyelid; Z79.631 Long term (current) use of antimetabolite agent | CPT/HCPCS: 99212 ==

== ENCOUNTER 2025-02-17 14:38 | Outpatient (AMB) | payer MEDICARE, OTHER, SELFPAY ==
[2025-02-17 14:40] VITALS: BP 116/77; PULSE 66; O2SAT 98; BMI 25.4
--- NOTE | 2025-02-17 14:40 | A.OFFVIS_ITS ---
Vital Signs 02/17/25 14:40 Height 5 ft 8 in Weight 167 lb 5.294 oz BMI 25.4 BP 116/77 Blood Pressure Location Lt brachial Position Sitting Pulse 66 Pulse Source Pulse Oximeter Pulse Oximetry (%) 98 Oxygen Delivery Method Room Air Intake Visit Reasons: PsA Intake Note: Patient was last seen in the office by Dr. Cisse on 08/17/24. Presents today for follow up on PSA and labs. Allergies bee venom protein (honey bee) Adverse Reaction (Unknown, Verified 02/17/25 14:42) Unknown Medication List - Last Reconciled 02/17/25 by Donna Scott MD aspirin 325 mg PO DAILY folic acid 1 mg PO DAILY ibuprofen 400 mg PO .bid PRN insulin syringe-needle U-100 Use weekly with methotrexate methotrexate sodium 25 mg subcut QWEEK HPI Comments Details: Patient is a 74-year-old male with psoriasis complicated by psoriatic arthritis here today for follow up Interval History: Patient last seen 08/17/[address] Cisse. At that visit he had advanced his methotrexate to 25 mg subcutaneous every week. He was tolerating medication however had methotrexate type flu about 1-2 days after receiving the medication. Joints were doing much better overall with less frequent flare-ups and reduced inflammation. Today he reports pretty much the same that his joints are overall better on the increase methotrexate but he still gets flares. Currently is having a resolving flare involving his right wrist. Rheumatologic History: dx 05/2023 MTX 05/2023 partially effective advanced to 25 mg subcu 03/2024 effective Initial history with Dr. Cisse: This is a 72-year-old male who presents for evaluation of multiple joint pain and swelling. The condition started years ago with pain and swelling affecting 1 joint or multiple joints at the same time like his elbow, wrist, hands, fingers, knees, ankles, feet. The pain lasts a few days to 1 week. Patient usually takes ibuprofen 600 mg 3 to 4 times a day with rapid resolution of the pain in 1-2 days but the swelling persists for about a week. He states that those flares have become much more frequent recently. Towards the end of last year he went to urgent care due to swelling from his left wrist going all the way up to his forearm. He was prescribed antibiotics with improvement in about 1 week. In the past he was prescribed prednisone by his PCP for similar attacks of joint pain with dramatic improvement. He states that 10 years ago he was having intermittent severe chest pain. He went to urgent care and was told he might have pericarditis and was advised to take high doses of by ibuprofen which gave him dramatic relief. He states that he still gets those attacks of chest pain 2 to 3 times a year rapidly resolved with ibuprofen. He mentions that he gets skin rashes in the umbilicus and lower abdomen as well as rashes on his fingers. Those were never formally assessed by a sole seamer. Patient gets low back pain. Sometimes worse in the morning associated with stiffness, the stiffness can last all day. Patient also mentions that he is quite active. [place] takes care of horses, cats, dogs and his who has dementia. States that his daughter has Jin's thyroiditis and 2 sons have Crohn's disease. He denies any fevers or weight changes. Denies any blood or froth in urine. Most recent colonoscopy 2018 was unremarkable Current Rheumatology Medication(s): Methotrexate 25 mg sc every week Folic acid 1 mg everyday [facility] Medical History P-ANCA and MPO antibodies positive Pericarditis Ostium secundum type atrial septal defect Patent foramen ovale Atopic dermatitis Diverticulitis of colon Acute ill-defined cerebrovascular disease Acute pericarditis, unspecified Surgical History Hx of tonsillectomy S/P colonoscopy Family History Maternal Grandmother Diabetes Sister Hx of breast cancer Hodgkin lymphoma Father Stomach disorder Daughter Jin's thyroiditis Son Crohn disease Son Crohn disease Social History Alcohol intake: current Alcohol intake frequency: holidays/special occasions only Patient Tobacco Use Status: Never used Tobacco Current occupational status: retired Current occupation: software release manager Review of Systems Const Details: Review of Systems Constitutional: Denies fever, chills, weight loss ENT: Denies vision changes, eye pain or eye redness, dental caries, dry mouth GI: Denies nausea, vomiting, diarrhea, abdominal pain, change in BM Pulm: Denies SOB, WARD, hemoptysis, wheezing Cards: Denies chest pain, palpitations Skin: Denies Raynaud's, rash, nail changes, photosensitivity, BROOM MAKER: Denies headaches, weakness, paresthesias, recurrent falls MSK: as per HPI All other systems reviewed and are unremarkable except noted above Physical Exam Vital Signs: Last Vital Signs Pulse 66 02/17/25 14:40 BP 116/77 02/17/25 14:40 Pulse Ox 98 02/17/25 14:40 Oxygen Delivery Method Room Air 02/17/25 14:40 BMI result Body Mass Index 25.4 Vital signs reviewed Physical Examination CONSTITUITIONAL Patient alert and cooperative. Well appearing and in no apparent painful distress HEENT Conjunctiva and sclera clear. ?Pupils equal round and reactive to light. ?No lymphadenopathy. ? CHEST/RESPIRATORY SYSTEM Normal respiratory effort and able to speak in complete sentences. ?Clear to auscultation bilaterally. ?No crackles, rales, rhonchi, wheezes heard. CARDIAC SYSTEM Regular rate and rhythm. ?S1 and S2 heard no murmurs. ?Radial pulses intact bilaterally MSK Hands: ?Good commercial lender strength bilaterally. No deformities noted. ?No synovitis noted to the MCPs, PIPs or DIPs. ?No tenderness to palpation of these joints. Increased joint laxity of the fingers. Heberden's nodes noted Wrists: ?Full range of motion at the wrists. Right wrist with warmth and tenderness to palpation as well as swelling. Left wrists without any abnormalities. Elbows: Full range of motion without pain. No tenderness, weakness, swelling, increased warmth or erythema. Shoulders: Full range of motion without pain. No tenderness, weakness, swelling, increased warmth or erythema. Hips: Full range of motion without pain. Hip bursa: No tenderness to palpation Knees: ?Full range of motion. ?No tenderness, swelling, increased warmth or erythema.? Bilateral crepitations felt Ankles: Full range of motion. ?No tenderness, swelling, increased warmth or erythema.? Feet: ?Negative squeeze test. ?No tenderness to palpation or swelling of the MTPs. Tender points:?No tenderness to palpation of the bilateral trapezius, supraspinatus, greater trochanters, anterior costochondral junctions, bilateral gluteal areas, bilateral suboccipital muscle insertions SKIN Psoriasis patch noted above gluteal fold as well as on upper chest. Results Reviewed Results Reviewed: Leticia Kamari lab reports reviewed. ESR 4 CRP <3 AST/ALT 33/36 Ca 1 GFR 79 WBC 7.69 HB 13.6 Platelets 316 Assessment & Plan Assessment & Plan (1) Psoriatic arthritis: Comment: dx 05/2023 MTX 05/2023 partially effective advanced to 25 mg subcu 03/2024 effective Code(s): L40.50 - Arthropathic psoriasis, unspecified Category: Medical Plan: #PsA Patient is a 74-year-old male with psoriasis complicated by psoriatic arthritis here today for follow up. His psoriasis is better controlled on the methotrexate subcutaneous however he is still having persistent psoriatic rashes as well as a breakthrough synovitis on examination today. I think he would benefit from apremilast Plan - Methotrexate 25mg SC every week - Folic acid 1mg every day - Start apremilast - RTC 4 months - Labs before visit: CBC, CMP, ESR, CRP (2) terminal carman methotrexate user: Code(s): Z79.631 - [facility] (current) use of antimetabolite agent Category: Medical Plan: #Long-term Current Use of Methotrexate Discussed with patient the benefits and risks of methotrexate for managing their rheumatic condition Benefits include reduced pain, reduced mortality, maintenance of remission and reduction of flares Risks include oral ulcers, photosensitivity, hepatotoxicity, hematologic toxicity, pneumonitis, flu-like symptoms (especially day after administration), nodulosis, lymphomas ? Limit alcohol and avoid Bactrim ? Monitoring: ?CBC, BMP, LFTs every 3-4 months and hepatitis serologies as needed (3) Long-term current use of apremilast: Code(s): Z79.61 - [facility] (current) use of immunomodulator Plan: #Long-term Current Use of Apremilast Risks and benefits of Apremilast in the management of psoriatic arthritis and psoriasis discussed with the patient. Benefits include decreased joint pain and morbidity Risks include GI upset including diarrhea, hypersensitivity reactions, signif icant weight loss, symptoms of depression Plan I spent 42 minutes reviewing the record and labs, taking a history, examining the patient, discussing the treatment plan, ordering diagnostic work up and documenting in the medical record Orders: Orders Complete Blood Count Auto Diff 4 Months L40.50 - Arthropathic psoriasis, unspecified Comprehensive Met. Panel 4 Months L40.50 - Arthropathic psoriasis, unspecified C Reactive Protein 4 Months L40.50 - Arthropathic psoriasis, unspecified Erythrocyte Sedimentation Rate 4 Months L40.50 - Arthropathic psoriasis, unspecified Medications: New apremilast (Otezla Starter) 10 mg in the morning on day 1. Day 2: 10 mg twice daily. Day 3: 10 mg in the morning and 20 mg in the evening. Day 4: 20 mg twice daily. Day 5: 20 mg in the morning and 30 mg in the evening. Maintenance dose: 30 mg twice daily starting on day 6. 55 ea 0RF L40.50 - Arthropathic psoriasis, unspecified apremilast To start after completing the started Dosepak 30 mg PO BID 180 tabs 1RF L40.50 - Arthropathic psoriasis, unspecified Coding Level of Care Code Est Pt Level 5 (40329) Complex EM visit Add On G2211 Diagnoses Psoriatic arthritis L40.50 terminal carman methotrexate user Z79.631 Long-term current use of apremilast Z79.61
== END 2025-02-17 15:25 | disposition home or self-care (01) ==
LOC: HO.RHE 14:39
PROVIDERS: PCP Physician Assistant; Visit Provider Student in an Organized Health Care Education/Training Program
DX: L40.50 Arthropathic psoriasis, unspecified (principal); Z79.631 Long term (current) use of antimetabolite agent; Z79.61 Long term (current) use of immunomodulator
CPT/HCPCS: 99215; G2211

== ENCOUNTER → 2025-02-17 14:38 | Outpatient (BNVA) | payer MEDICARE, OTHER, SELFPAY | PROVIDERS: PCP Physician Assistant; Visit Provider Student in an Organized Health Care Education/Training Program | DX: L40.50 Arthropathic psoriasis, unspecified (principal); Z79.631 Long term (current) use of antimetabolite agent; Z79.61 Long term (current) use of immunomodulator | CPT/HCPCS: 99212 ==

== ENCOUNTER 2025-06-22 13:40 | Outpatient (AMB) | payer MEDICARE, OTHER, SELFPAY ==
--- NOTE | 2025-06-22 13:45 | A.OFFVIS_ITS ---
Vital Signs 06/22/25 13:49 Height 5 ft 8 in Weight 163 lb 5.8 oz BMI 24.8 BP 115/72 Blood Pressure Location Lt brachial Position Sitting Pulse 74 Pulse Source Pulse Oximeter Pulse Oximetry (%) 98 Oxygen Delivery Method Room Air Intake Visit Reasons: PsA Intake Note: Patient presents for PsA follow up. Allergies bee venom protein (honey bee) Adverse Reaction (Unknown, Verified 06/22/25 13:48) Unknown HPI Comments Details: Patient is a 74-year-old male with psoriasis complicated by psoriatic arthritis here today for follow up Interval History: Patient last seen 02/17/25 with me - Doing better on increased Mtx - still with intermittent flares, so added Otezla Today - Feels the otezla has improved his joint pain Rheumatologic History: dx 05/2023 MTX 05/2023 partially effective advanced to 25 mg subcu 03/2024 effective Initial history with Dr. Cisse: This is a 72-year-old male who presents for evaluation of multiple joint pain and swelling. The condition started years ago with pain and swelling affecting 1 joint or multiple joints at the same time like his elbow, wrist, hands, fingers, knees, ankles, feet. The pain lasts a few days to 1 week. Patient usually takes ibuprofen 600 mg 3 to 4 times a day with rapid resolution of the pain in 1-2 days but the swelling persists for about a week. He states that those flares have become much more frequent recently. Towards the end of last year he went to urgent care due to swelling from his left wrist going all the way up to his forearm. He was prescribed antibiotics with improvement in about 1 week. In the past he was prescribed prednisone by his PCP for similar attacks of joint pain with dramatic improvement. He states that 10 years ago he was having intermittent severe chest pain. He went to urgent care and was told he might have pericarditis and was advised to take high doses of by ibuprofen which gave him dramatic relief. He states that he still gets those attacks of chest pain 2 to 3 times a year rapidly resolved with ibuprofen. He mentions that he gets skin rashes in the umbilicus and lower abdomen as well as rashes on his fingers. Those were never formally assessed by a inspector circuitry negative. Patient gets low back pain. Sometimes worse in the morning associated with stiffness, the stiffness can last all day. Patient also mentions that he is quite active. [place] takes care of horses, cats, dogs and his who has dementia. States that his daughter has Jin's thyroiditis and 2 sons have Crohn's disease. He denies any fevers or weight changes. Denies any blood or froth in urine. Most recent colonoscopy 2017 was unremarkable Current Rheumatology Medication(s): Methotrexate 25 mg sc every week Folic acid 1 mg everyday Otezla 30mg bid [facility] Medical History P-ANCA and MPO antibodies positive Pericarditis Ostium secundum type atrial septal defect Patent foramen ovale Atopic dermatitis Diverticulitis of colon Acute ill-defined cerebrovascular disease Acute pericarditis, unspecified Surgical History Hx of tonsillectomy S/P colonoscopy Family History Maternal Grandmother Diabetes Sister Hx of breast cancer Hodgkin lymphoma Father Stomach disorder Daughter Jin's thyroiditis Son Crohn disease Son Crohn disease Social History Alcohol intake: current Alcohol intake frequency: holidays/special occasions only Patient Tobacco Use Status: Never used Tobacco Current occupational status: retired 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 Well appearing and in no apparent painful distress HEENT Conjunctiva and sclera clear. No lymphadenopathy. MSK Hands * Right Hand: Able to make a fist. No swelling or tenderness to palpation of these joints. * Left Hand: Able to make a fist. No swelling or tenderness to palpation of these joints. * Herbedens nodes noted bilaterally * Joint laxity noted throughout hands Wrists * Right Wrist: Full ROM. 70 degrees of wrist flexion, 80 degrees of wrist extension. No swelling or TTP * Left Wrist: Full ROM. 70 degrees of wrist flexion, 80 degrees of wrist extension. No swelling or TTP Elbows * Right Elbow: Full ROM. No swelling or TTP. No TTP of the medial and lateral epicondyles * Left Elbow: Full ROM. No swelling or TTP. No TTP of the medial and lateral epicondyles Shoulders * Right shoulder: Full ROM. No swelling noted. No TTP of the AC joint, subacromial bursa or posterior shoulder * Left shoulder: Full ROM. No swelling noted. No TTP of the AC joint, subacromial bursa or posterior shoulder Hip bursa: No tenderness to palpation bilaterally Knees * Right knee: Full ROM. No swelling noted. No TTP of the knee joint lie or pes anserine bursa * Left knee: Full ROM. No swelling noted. No TTP of the knee joint lie or pes anserine bursa. * Crepitations felt bilaterally Ankles * Right ankle: Good ankle dorsiflexion and plantar flexion. No swelling. No TTP of the ankle joint * Left ankle: Good ankle dorsiflexion and plantar flexion. No swelling. No TTP of the ankle joint Feet * Right foot: Negative squeeze test * Left foot: Negative squeeze test Tender points? * No tenderness to palpation of the bilateral trapezius, supraspinatus, anterior costochondral junctions, bilateral suboccipital muscle insertions SKIN Faint PsO rash on stomach Some post inflammatory hyperpigemented changes on the upper chest Vital Signs: Last Vital Signs Pulse 74 06/22/25 13:49 BP 115/72 06/22/25 13:49 Pulse Ox 98 06/22/25 13:49 Oxygen Delivery Method Room Air 06/22/25 13:49 BMI result Body Mass Index 24.8 Results Reviewed Results Reviewed: 02/02/2025 06/15/2025 Leticia Blum WBC 7.5 Hb 13.6 Plt 336 BUN 12 Cr 1.1 eGFR 71 AST 33 38 H ALT 36 41 H ESR 6 CRP <3.0 Assessment & Plan Assessment & Plan (1) Psoriatic arthritis: Comment: dx 05/2023 MTX 05/2023 partially effective advanced to 25 mg subcu 03/2024 effective Code(s): L40.50 - Arthropathic psoriasis, unspecified Category: Medical Plan: #PsA Patient is a 74-year-old male with psoriasis complicated by psoriatic arthritis here today for follow up. Patient doing better overall with respect to his psoriasis and psoriatic arthritis. Mildly elevated transaminases noted on this blood check. We will decrease his methotrexate and recheck his blood work in 4 weeks Plan - Decrease Methotrexate 15mg SC every week - Folic acid 1mg every day - Otezla 30mg bid - CMP in 4 weeks to recheck AST/ALT - RTC 4 months - Labs before visit: CBC, CMP, ESR, CRP (2) correction methotrexate user: Code(s): Z79.631 - correction (current) use of antimetabolite agent Category: Medical Plan: #Long-term Current Use of Methotrexate Discussed with patient the benefits and risks of methotrexate for managing their rheumatic condition Benefits include reduced pain, reduced mortality, maintenance of remission and reduction of flares Risks include oral ulcers, photosensitivity, hepatotoxicity, hematologic toxicity, pneumonitis, flu-like symptoms (especially day after administration), nodulosis, lymphomas ? Limit alcohol and avoid Bactrim ? Monitoring: ?CBC, BMP, LFTs every 3-4 months and hepatitis serologies as needed (3) Long-term current use of apremilast: Code(s): Z79.61 - correction (current) use of immunomodulator Plan: #Long-term Current Use of Apremilast Risks and benefits of Apremilast in the management of psoriatic arthritis and psoriasis discussed with the patient. Benefits include decreased joint pain and morbidity Risks include GI upset including diarrhea, hypersensitivity reactions, significant weight loss, symptoms of depression Plan I spent 30 minutes reviewing the record and labs, taking a history, examining the patient, discussing the treatment plan, ordering diagnostic work up and documenting in the medical record Coding Level of Care Code Est Pt Level 4 (61627) Complex EM visit Add On G2211 Diagnoses Psoriatic arthritis L40.50 intermediate project manager methotrexate user Z79.631 Long-term current use of apremilast Z79.61
[2025-06-22 13:49] VITALS: BP 115/72; PULSE 74; O2SAT 98; BMI 24.8
--- OUTSIDE RECORDS SUMMARY | 2025-06-22 14:28 | XMS_ITS | Encounter Summary ---
Author Organization [facility] Address [address] [place] [id number] Phone Care Team Providers Care Cotton Bag Clipper Name Role Phone Jorge Graham MD Primary Care Provider [phone] Bell Choi PA-C Primary Care Provider [phone] Encounter Details Date Type Department Care Team (Late st Contact Info) Description 02/13/2019 Procedure Pass OR Admitting Dept - Virtual Department [address] [place] [address] Social History Tobacco Use Types Packs/Day Years Used Date Smoking Tobacco: Never Smokeless Tobacco: Never Alcohol Use Standard Drinks/Week Comments Not Currently 0 (1 standard drink = 0.6 oz pur e alcohol) Sex and Gender Information Value Date Recorded Sex Assigned at Not on file Legal Sex Male 5:18 PM EST Gender Identity Not on file Sexual Orientation Not on file documented as of this encounter Plan of Treatment Not on file documented as of this encounter Visit Diagnoses Not on filedocumented in this encounter Care Teams Cotton Bag Clipper Relationship Specialty Start Date End Date Jorge Graham MD [email or web address] PCP - General Family Medicine 02/05/19 10/24/22 Bell Choi PA-C [address] [place] [id number] [email or web address] PCP - General Cardiology 10/25/22 documented as of this encounter Additional Source Comments The information contained in this document represents components of the legal health record. It is not the complete legal health record.[facility]
--- OUTSIDE RECORDS SUMMARY | 2025-06-22 14:28 | XMS_ITS | Data Portability ---
Author Organization [facility], , [facility], OFFICE Address [address] [place] [address] Care Team Providers Care Order Packer Name Role Phone DENVER RIOS Brim Ironer Hand [facility] Rheumatologi st ALEJANDRA MILLAN Primary Care Provider [phone] [facility] [employer] Assessment Encounter Date Assessment Date Assessment LastModified by Organization Details LastModified Time 10/16/2023 10/16/2023 We completed your Medicare Wellness exam today. This was an opportunity to assess your overall well being including your ability to care for yourself, your mobility, memory, mental health, as well as your safety. With advancing age, it is important to assign someone in your life as your Health Care Proxy (HCP). This person should know what is important to you and what your wishes are for medical procedures if you cannot communicate your wishes yourself (severe illness, unconsciousness) . We discussed having a completed Health Care Proxy form today. In addition, today we started a conversation about your End of Life wishes. These conversations will continue over the years. Please consider reading the book, Being Mortal by Tyrese Nava to help frame future conversations. We discussed the purpose of a MOLST form (Medical Orders for Life Sustaining Treatment) and completed this form if appropriate per your wishes. Vision and Hearing are senses that are critically important as we age. When impaired, they can contribute to memory loss, falls, and make it harder to drive, talk to family and friends, and engage in the world. Please get your vision checked yearly and your hearing checked when you start to notice hearing loss. We discussed approaches to lowering your risk of heart disease and stroke . Your blood pressure . Your cholesterol . We discussed cancer screening you may need as well as vaccines to prevent infections. Colon Cancer : Your risk of colon cancer is . Due for colorectal screening:.. if you are not planning to have a colonoscopy please screen with stool cards yearly. Prostate Cancer : PSA testing for ages 55-69 risks and benefits discussed . Aortic Aneurysm Screening : is indicated if you have a history of smoking and is due once at age 65. Influenza Vaccine : Flu shot yearly. Tetanus Vaccine : Every 10 years. Due: . The following vaccines are available from your pharmacy: Pneumonia Vaccine : PCV20: once after age 65. Shingles Vaccine : 2 shots after age 50. Covid Vaccine : Make sure you have received the most up to date covid vaccine. Your personal health goal for the year is: [email or web address] Not available 10/16/2023 08:37:53 01/11/2025 01/11/2025 We reviewed your chronic medical conditions and updated your plan for management. Please review instructions below. We have discussed your personal goals and discussed how to reach your goals. Please reach out to us via the Portal or phone if you have questions about your chronic conditions or if you or your caregivers require assistance in meeting your goals. Please visit our website [employer] for more patient resources. As part of your care plan, we will help coordinate your ongoing medical needs, arrange for durable medical equipment, renew prescriptions and necessary prior authorizations, facilitate getting referrals and collaborating with specialist, referrals for VNA services. [email or web address] Not available 01/11/2025 14:27:58 01/26/2025 01/26/2025 We reviewed your chronic medical conditions and updated your plan for management. Please review instructions below. We have discussed your personal goals and discussed how to reach your goals. Please reach out to us via the Portal or phone if you have questions about your chronic conditions or if you or your caregivers require assistance in meeting your goals. Please visit our website [employer] for more patient resources. As part of your care plan, we will help coordinate your ongoing medical needs, arrange for durable medical equipment, renew prescriptions and necessary prior authorizations, facilitate getting referrals and collaborating with specialist, referrals for VNA services. [email or web address] Not available 01/26/2025 12:18:47 Plan of Treatment Reminders Order Date Submit Date Provider Last Modified By Organization Details Last Modified Time Details Appointments None recorded. Lab None recorded. Referral gastroenter ologist referral - epigastric pain with spasm / nausea / vomiting x 1 year 2024 025 [facility], [address], [place], [address], 16:21:31 Procedures cerumen removal (PROC) - bedside ear flush done in clinic 2024 025 [email or web address] Not available 15:03:51 Surgeries None recorded. Imaging None recorded. Medication Orders pantoprazol e 40 mg tablet,yara yed release 2024 025 [place] [facility], [address] [place], [address], 5 14:10:42 doxycycline monohydrate 100 mg capsule 2022 023 [email or web address] [facility], [address] [place], [address], 09:33:29 Patient TargetsNo targets recorded. Patient Instructions Encounter Date Encounter Id Patient Instructions Last Modified By Organization Details Last Modified Time 10/16/2023 [id number] preventing falls : care instructions Not available 10/16/2023 10:28:58 hearing loss information Not available 10/16/2023 10:28:58 advance directives: care instructions Not available 10/16/2023 10:28:58 well visit, over 65: care instructions Not available 10/16/2023 10:28:58 Prostate Cancer Screening was discussed. The [place]. Preventive Services Task Force advises not to make a PSA test a part of the standard exam for men ages 55-69. Instead they recommend the uncertainties about the test be discussed and ordered only if a patient still wants it. Over their lifetimes as many as 50% or more of men will develop prostate cancer but only 2% of men will of prostate cancer. For men who chose to be screened for prostate cancer if 1000 men are screened with a psa test over a 15 year period there might be 1-2 deaths prevented however 235 men will have a biopsy with risk of infection, bleeding and Pain, 100 men will have their prostate removed by surgery or radiation treatments and 60-70 of those will suffer incontinence or impotence. There is also the risk of anesthesia or radiation complications. For men over 70 prostate cancer screening offered no benefit and risked pain, worry, expense and possibly shorter life expectancy. [email or web address] Not available 10/16/2023 08:37:53 Reason for Referral [employer] Referral for Epigastric pain epigastric pain with spasm / nausea / vomiting x 1 year Referring Physician: Alejandra Millan, Family Medicine, Encounter Date: 01/11/2025 Results Created Date Observation Date Name Description Value Unit Range Abnormal Flag Note LastModifiedBy Organization Detail LastModifiedTime 07/25/2007/25/2023 CBC AND DIFFE RENTI AL WBC 8.87 K/uL 4.00-1 1.00 Not Available [facility] (Outpatient) [address] [place] [address], [id number], 07/25/2023 18:43:31 07/25/20 23 07/25/2023 CBC AND DIFFE RENTI AL RBC 4.55 M/uL 3.90-5 .69 Not Available [facility] (Outpatient) [address] [place] [address], [id number], 07/25/2023 18:43:31 07/25/20 23 07/25/2023 CBC AND DIFFE RENTI AL HGB 13.4 g/dL 12.4-1 7.3 Not Available [facility] (Outpatient) [address] [place] [address], [id number], 07/25/2023 18:43:31 07/25/20 23 07/25/2023 CBC AND DIFFE RENTI AL HCT 41.0 % 37.0-5 1.0 Not Available [facility] (Outpatient) [address] [place] [address], [id number], 07/25/2023 18:43:31 07/25/20 23 07/25/2023 CBC AND DIFFE RENTI AL plt 332 K/uL 140-43 0 Not Available [facility] (Outpatient) [address] [place], [address], 07/25/2023 18:43:31 07/25/20 23 07/25/2023 CBC AND DIFFE RENTI AL MCV 90.1 fL 78.0-9 7.0 Not Available [facility] (Outpatient) [address] [place], [address], 07/25/2023 18:43:31 07/25/20 23 07/25/2023 CBC AND DIFFE RENTI AL MCH 29.5 pg 25.0-3 3.0 Not Available [facility] (Outpatient) [address] [place], [address], 07/25/2023 18:43:31 07/25/20 23 07/25/2023 CBC AND DIFFE RENTI AL MCHC 32.7 g/dL 32.0-3 6.0 Not Available [facility] (Outpatient) [address] [place], [address], 07/25/2023 18:43:31 07/25/20 23 07/25/2023 CBC AND DIFFE RENTI AL RDW 14.1 % 11.0-1 5.0 Not Available [facility] (Outpatient) [address] [place], [address], 07/25/2023 18:43:31 07/25/20 23 07/25/2023 CBC AND DIFFE RENTI AL MPV 10.5 fL 8.4-12 .8 Not Available [facility] (Outpatient) [address] [place], [address], 07/25/2023 18:43:31 07/25/20 23 07/25/2023 CBC AND DIFFE RENTI AL diff method Auto Not Available [facility] (Outpatient) [address] [place], [address], 07/25/2023 18:43:31 07/25/20 23 07/25/2023 CBC AND DIFFE RENTI AL neuts 62.3 % 43.0-7 5.0 Not Available [facility] (Outpatient) [address] [place], [address], 07/25/2023 18:43:31 07/25/20 23 07/25/2023 CBC AND DIFFE RENTI AL lymphs 15.7 % 18.2-4 7.4 low Not Available [facility] (Outpatient) [address] [place], [address], 07/25/2023 18:43:31 07/25/20 23 07/25/2023 CBC AND DIFFE RENTI AL monos 7.7 % 4.00-1 1.00 Not Available [facility] (Outpatient) [address] [place], [address], 07/25/2023 18:43:31 07/25/20 23 07/25/2023 CBC AND DIFFE RENTI AL eos 13.1 % 0.0-8. 0 high Not Available [facility] (Outpatient) [address] [place], [address], 07/25/2023 18:43:31 07/25/20 23 07/25/2023 CBC AND DIFFE RENTI AL basos 0.9 % 0.0-2. 0 Not Available [facility] (Outpatient) [address] [place], [address], 07/25/2023 18:43:31 07/25/20 23 07/25/2023 CBC AND DIFFE RENTI AL granulocytes , immature (%) 0.3 % 0.0-0. 9 Not Available [facility] (Outpatient) [address] [place], [address], 07/25/2023 18:43:31 07/25/20 23 07/25/2023 CBC AND DIFFE RENTI AL absolute neuts 5.53 K/uL 1.80-7 .70 Not Available [facility] (Outpatient) [address] [place], [address], 07/25/2023 18:43:31 07/25/20 23 07/25/2023 CBC AND DIFFE RENTI AL absolute lymphs 1.39 K/uL 1.00-3 .10 Not Available [facility] (Outpatient) [address] [place], [address], 07/25/2023 18:43:31 07/25/20 23 07/25/2023 CBC AND DIFFE RENTI AL absolute monos 0.68 K/uL 0.20-0 .80 Not Available [facility] (Outpatient) [address] [place], [address], 07/25/2023 18:43:31 07/25/20 23 07/25/2023 CBC AND DIFFE RENTI AL absolute eos 1.16 K/uL 0.00-0 .80 high Not Available [facility] (Outpatient) [address] [place] [address], [id number], 07/25/2023 18:43:31 07/25/20 23 07/25/2023 CBC AND DIFFE RENTI AL absolute basos 0.08 K/uL 0.00-0 .09 Not Available [facility] (Outpatient) [address] [place], [address], 07/25/2023 18:43:31 07/25/20 23 07/25/2023 CBC AND DIFFE RENTI AL granulocytes , immature 0.03 K/uL 0.00-0 .05 Not Available [facility] (Outpatient) [address] [place], [address], 07/25/2023 18:43:31 07/25/20 23 07/25/2023 SEDIM ENTAT ION RATE (ESR) ESR 8 mm/h 0-20 Not Available [facility] (Outpatient) [address] [place], [address], 07/25/2023 19:22:28 07/25/20 23 07/25/2023 COMPR EHENS CHENCHO METAB OLIC PANEL sodium 138 mmol/ L 133-14 6 Not Available [facility] (Outpatient) [address] [place], [address], 07/25/2023 19:24:09 07/25/20 23 07/25/2023 COMPR EHENS CHENCHO METAB OLIC PANEL potassium 4.2 mmol/ L 3.3-5. 1 Not Available [facility] (Outpatient) [address] [place], [address], 07/25/2023 19:24:09 07/25/20 23 07/25/2023 COMPR EHENS CHENCHO METAB OLIC PANEL chloride 102 mmol/ L 96-108 Not Available [facility] (Outpatient) [address] [place], [address], 07/25/2023 19:24:09 07/25/20 23 07/25/2023 COMPR EHENS CHENCHO METAB OLIC PANEL CO2 25 mmol/ L 21-35 Not Available [facility] (Outpatient) [address] [place], [address], 07/25/2023 19:24:09 07/25/20 23 07/25/2023 COMPR EHENS CHENCHO METAB OLIC PANEL BUN 21 mg/dL 6-19 high Not Available [facility] (Outpatient) [address] [place], [address], 07/25/2023 19:24:09 07/25/20 23 07/25/2023 COMPR EHENS CHENCHO METAB OLIC PANEL creatinine 1.20 mg/dL 0.5-1. 5 Not Available [facility] (Outpatient) [address] [place], [address], 07/25/2023 19:24:09 07/25/20 23 07/25/2023 COMPR EHENS CHENCHO METAB OLIC PANEL glucose 152 mg/dL 70-99 high Not Available [facility] (Outpatient) [address] [place], [address], 07/25/2023 19:24:09 07/25/20 23 07/25/2023 COMPR EHENS CHENCHO METAB OLIC PANEL albumin 4.1 g/dL 3.9-4. 8 Not Available [facility] (Outpatient) [address] [place], [address], 07/25/2023 19:24:07/25/20 23 07/25/2023 COMPR EHENS CHENCHO METAB OLIC PANEL total protein 6.5 g/dL 6.5-8. 0 Not Available [facility] (Outpatient) [address] [place], [address], 07/25/2023 19:24:07/25/20 23 07/25/2023 COMPR EHENS CHENCHO METAB OLIC PANEL calcium 8.7 mg/dL 8.4-10 .3 Not Available [facility] (Outpatient) [address] [place], [address], 07/25/2023 19:24:09 07/25/20 23 07/25/2023 COMPR EHENS CHENCHO METAB OLIC PANEL alkaline phosphatase 66 U/L 39-117 Not Available [facility] (Outpatient) [address] [place], [address], 07/25/2023 19:24:07/25/20 23 07/25/2023 COMPR EHENS CHENCHO METAB OLIC PANEL total bilirubin <0.2 mg/dL 0.0-1. 2 Not Available [facility] (Outpatient) [address] [place], [address], 07/25/2023 19:24:09 07/25/20 23 07/25/2023 COMPR EHENS CHENCHO METAB OLIC PANEL AST 18 U/L 0-37 Not Available [facility] (Outpatient) [address] [place], [address], 07/25/2023 19:24:09 07/25/20 23 07/25/2023 COMPR EHENS CHENCHO METAB OLIC PANEL ALT 12 U/L 0-40 Not Available [facility] (Outpatient) [address] [place], [address], 07/25/2023 19:24:09 07/25/20 23 07/25/2023 COMPR EHENS CHENCHO METAB OLIC PANEL globulin 2.4 g/dL 1-4.8 Not Available [facility] (Outpatient) [address] [place], [address], 07/25/2023 19:24:09 07/25/20 23 07/25/2023 COMPR EHENS CHENCHO METAB OLIC PANEL eGFR 65 mL/mi n/1.7 3m2 >59 Estim ated glome rular filtr ation rate calcu lated using the CKD-E PI refit equat ion. Not Available [facility] (Outpatient) [address] [place], [address], 07/25/2023 19:24:09 07/25/20 23 07/25/2023 COMPR EHENS CHENCHO METAB OLIC PANEL anion gap 15 mmol/ L 10-20 Not Available [facility] (Outpatient) [address] [place], [address], 07/25/2023 19:24:09 07/25/20 23 07/25/2023 C-JOAN CTIVE PROTE IN C reactive protein 3.6 mg/L 0.0-4. 0 Not Available [facility] (Outpatient) [address] [place], [address], 07/25/2023 19:24:10 09/04/20 23 09/04/2023 COMPR EHENS CHNECHO METAB OLIC PANEL sodium 140 mmol/ L 133-14 6 Not Available [facility] (Outpatient) [address] [place], [address], 09/04/2023 13:47:14 09/04/2009/04/2023 COMPR EHENS CHENCHO METAB OLIC PANEL potassium 4.4 mmol/ L 3.3-5. 1 Not Available [facility] (Outpatient) [address] [place], [address], 09/04/2023 13:47:14 09/04/2009/04/2023 COMPR EHENS CHENCHO METAB OLIC PANEL chloride 104 mmol/ L 96-108 Not Available [facility] (Outpatient) [address] [place], [address], 09/04/2023 13:47:14 09/04/2009/04/2023 COMPR EHENS CHENCHO METAB OLIC PANEL CO2 27 mmol/ L 21-35 Not Available [facility] (Outpatient) [address] [place], [address], 09/04/2023 13:47:14 09/04/20 23 09/04/2023 COMPR EHENS CHENCHO METAB OLIC PANEL BUN 15 mg/dL 6-19 Not Available [facility] (Outpatient) [address] [place], [address], 09/04/2023 13:47:14 09/04/2009/04/2023 COMPR EHENS CHENCHO METAB OLIC PANEL creatinine 1.20 mg/dL 0.5-1. 5 Not Available [facility] (Outpatient) [address] [place], [address], 09/04/2023 13:47:14 09/04/2009/04/2023 COMPR EHENS CHENCHO METAB OLIC PANEL glucose 96 mg/dL 70-99 Not Available [facility] (Outpatient) [address] [place], [address], 09/04/2023 13:47:14 09/04/20 23 09/04/2023 COMPR EHENS CHENCHO METAB OLIC PANEL albumin 3.9 g/dL 3.9-4. 8 Not Available [facility] (Outpatient) [address] [place], [address], 09/04/2023 13:47:14 09/04/20 23 09/04/2023 COMPR EHENS CHENCHO METAB OLIC PANEL total protein 6.5 g/dL 6.5-8. 0 Not Available [facility] (Outpatient) [address] [place], [address], 09/04/2023 13:47:14 09/04/2009/04/2023 COMPR EHENS CHENCHO METAB OLIC PANEL calcium 8.7 mg/dL 8.4-10 .3 Not Available [facility] (Outpatient) [address] [place], [address], 09/04/2023 13:47:14 09/04/2009/04/2023 COMPR EHENS CHENCHO METAB OLIC PANEL alkaline phosphatase 61 U/L 39-117 Not Available [facility] (Outpatient) [address] [place], [address], 09/04/2023 13:47:14 09/04/20 23 09/04/2023 COMPR EHENS CHENCHO METAB OLIC PANEL total bilirubin 0.4 mg/dL 0.0-1. 2 Not Available [facility] (Outpatient) [address] [place], [address], 09/04/2023 13:47:14 09/04/2009/04/2023 COMPR EHENS CHENCHO METAB OLIC PANEL AST 21 U/L 0-37 Not Available [facility] (Outpatient) [address] [place], [address], 09/04/2023 13:47:14 09/04/20 23 09/04/2023 COMPR EHENS CHENCHO METAB OLIC PANEL ALT 19 U/L 0-40 Not Available [facility] (Outpatient) [address] [place], [address], 09/04/2023 13:47:14 09/04/20 23 09/04/2023 COMPR EHENS CHENCHO METAB OLIC PANEL globulin 2.6 g/dL 1-4.8 Not Available [facility] (Outpatient) [address] [place], [address], 09/04/2023 13:47:14 09/04/20 23 09/04/2023 COMPR EHENS CHENCHO METAB OLIC PANEL eGFR 65 mL/mi n/1.7 3m2 >59 Estim ated glome rular filtr ation rate calcu lated using the CKD-E PI refit equat ion. Not Available [facility] (Outpatient) [address] [place], [address], 09/04/2023 13:47:14 09/04/20 23 09/04/2023 COMPR EHENS CHENCHO METAB OLIC PANEL anion gap 13 mmol/ L 10-20 Not Available [facility] (Outpatient) [address] [place], [address], 09/04/2023 13:47:14 09/04/20 23 09/04/2023 C-JOAN CTIVE PROTE IN C reactive protein 5.1 mg/L 0.0-4. 0 high Not Available [facility] (Outpatient) [address] [place], [address], 09/04/2023 13:47:15 09/04/20 23 09/04/2023 CBC AND DIFFE RENTI AL WBC 8.96 K/uL 4.00-1 1.00 Not Available [facility] (Outpatient) [address] [place], [address], 09/04/2023 13:53:19 09/04/20 23 09/04/2023 CBC AND DIFFE RENTI AL RBC 4.44 M/uL 3.90-5 .69 Not Available [facility] (Outpatient) [address] [place], [address], 09/04/2023 13:53:19 09/04/2009/04/2023 CBC AND DIFFE RENTI AL HGB 13.0 g/dL 12.4-1 7.3 Not Available [facility] (Outpatient) [address] [place], [address], 09/04/2023 13:53:19 09/04/2009/04/2023 CBC AND DIFFE RENTI AL HCT 41.1 % 37.0-5 1.0 Not Available [facility] (Outpatient) [address] [place], [address], 09/04/2023 13:53:19 09/04/2009/04/2023 CBC AND DIFFE RENTI AL plt 323 K/uL 140-43 0 Not Available [facility] (Outpatient) [address] [place], [address], 09/04/2023 13:53:19 09/04/2009/04/2023 CBC AND DIFFE RENTI AL MCV 92.6 fL 78.0-9 7.0 Not Available [facility] (Outpatient) [address] [place], [address], 09/04/2023 13:53:19 09/04/2009/04/2023 CBC AND DIFFE RENTI AL MCH 29.3 pg 25.0-3 3.0 Not Available [facility] (Outpatient) [address] [place], [address], 09/04/2023 13:53:19 09/04/2009/04/2023 CBC AND DIFFE RENTI AL MCHC 31.6 g/dL 32.0-3 6.0 low Not Available [facility] (Outpatient) [address] [place], [address], 09/04/2023 13:53:19 09/04/20 23 09/04/2023 CBC AND DIFFE RENTI AL RDW 14.6 % 11.0-1 5.0 Not Available [facility] (Outpatient) [address] [place], [address], 09/04/2023 13:53:19 09/04/2009/04/2023 CBC AND DIFFE RENTI AL MPV 10.6 fL 8.4-12 .8 Not Available [facility] (Outpatient) [address] [place], [address], 09/04/2023 13:53:19 09/04/2009/04/2023 CBC AND DIFFE RENTI AL diff method Auto Not Available [facility] (Outpatient) [address] [place] [address], [id number], 09/04/2023 13:53:19 09/04/2009/04/2023 CBC AND DIFFE RENTI AL neuts 62.7 % 43.0-7 5.0 Not Available [facility] (Outpatient) [address] [place] [address], [id number], 09/04/2023 13:53:19 09/04/2009/04/2023 CBC AND DIFFE RENTI AL lymphs 14.1 % 18.2-4 7.4 low Not Available [facility] (Outpatient) [address] [place] [address], [id number], 09/04/2023 13:53:19 09/04/2009/04/2023 CBC AND DIFFE RENTI AL monos 9.4 % 4.00-1 1.00 Not Available [facility] (Outpatient) [address] [place] [address], [id number], 09/04/2023 13:53:19 09/04/20 23 09/04/2023 CBC AND DIFFE RENTI AL eos 12.9 % 0.0-8. 0 high Not Available [facility] (Outpatient) [address] [place], [address], 09/04/2023 13:53:19 09/04/2009/04/2023 CBC AND DIFFE RENTI AL basos 0.7 % 0.0-2. 0 Not Available [facility] (Outpatient) [address] [place], [address], 09/04/2023 13:53:19 09/04/2009/04/2023 CBC AND DIFFE RENTI AL granulocytes , immature (%) 0.2 % 0.0-0. 9 Not Available [facility] (Outpatient) [address] [place], [address], 09/04/2023 13:53:19 09/04/2009/04/2023 CBC AND DIFFE RENTI AL absolute neuts 5.62 K/uL 1.80-7 .70 Not Available [facility] (Outpatient) [address] [place], [address], 09/04/2023 13:53:19 09/04/2009/04/2023 CBC AND DIFFE RENTI AL absolute lymphs 1.26 K/uL 1.00-3 .10 Not Available [facility] (Outpatient) [address] [place] [address], [id number], 09/04/2023 13:53:19 09/04/2009/04/2023 CBC AND DIFFE RENTI AL absolute monos 0.84 K/uL 0.20-0 .80 high Not Available [facility] (Outpatient) [address] [place] [address], [id number], 09/04/2023 13:53:19 09/04/20 23 09/04/2023 CBC AND DIFFE RENTI AL absolute eos 1.16 K/uL 0.00-0 .80 high Not Available [facility] (Outpatient) [address] [place] [address], [id number], 09/04/2023 13:53:19 09/04/20 23 09/04/2023 CBC AND DIFFE RENTI AL absolute basos 0.06 K/uL 0.00-0 .09 Not Available [facility] (Outpatient) [address] [place], [address], 09/04/2023 13:53:19 09/04/20 23 09/04/2023 CBC AND DIFFE RENTI AL granulocytes , immature 0.02 K/uL 0.00-0 .05 Not Available [facility] (Outpatient) [address] [place], [address], 09/04/2023 13:53:19 09/04/20 23 09/04/2023 SEDIM ENTAT ION RATE (ESR) ESR 8 mm/h 0-20 Not Available [facility] (Outpatient) [address] [place], [address], 09/04/2023 14:13:26 12/12/19 24 12/12/2023 CBC WBC 10.45 K/uL 4.00-1 1.00 Not Available [facility] (Outpatient) [address] [place], [address], 12/12/2023 13:20:22 12/12/19 24 12/12/2023 CBC RBC 4.41 M/uL 3.90-5 .69 Not Available [facility] (Outpatient) [address] [place], [address], 12/12/2023 13:20:22 12/12/19 24 12/12/2023 CBC HGB 13.2 g/dL 12.4-1 7.3 Not Available [facility] (Outpatient) [address] [place], [address], 12/12/2023 13:20:22 12/12/19 24 12/12/2023 CBC HCT 41.4 % 37.0-5 1.0 Not Available [facility] (Outpatient) [address] [place], [address], 12/12/2023 13:20:22 12/12/19 24 12/12/2023 CBC plt 376 K/uL 140-43 0 Not Available [facility] (Outpatient) [address] [place], [address], 12/12/2023 13:20:22 12/12/19 24 12/12/2023 CBC MCV 93.9 fL 78.0-9 7.0 Not Available [facility] (Outpatient) [address] [place], [address], 12/12/2023 13:20:22 12/12/19 24 12/12/2023 CBC MCH 29.9 pg 25.0-3 3.0 Not Available [facility] (Outpatient) [address] [place], [address], 12/12/2023 13:20:22 12/12/19 24 12/12/2023 CBC MCHC 31.9 g/dL 32.0-3 6.0 low Not Available [facility] (Outpatient) [address] [place], [address], 12/12/2023 13:20:22 12/12/19 24 12/12/2023 CBC RDW 13.6 % 11.0-1 5.0 Not Available [facility] (Outpatient) [address] [place], [address], 12/12/2023 13:20:22 12/12/19 24 12/12/2023 CBC MPV 10.1 fL 8.4-12 .8 Not Available [facility] (Outpatient) [address] [place], [address], 12/12/2023 13:20:22 12/12/19 24 12/12/2023 COMPR EHENS CHENCHO METAB OLIC PANEL sodium 135 mmol/ L 133-14 6 Not Available [facility] (Outpatient) [address] [place], [address], 12/12/2023 13:42:47 12/12/19 24 12/12/2023 COMPR EHENS CHENCHO METAB OLIC PANEL potassium 4.7 mmol/ L 3.3-5. 1 Not Available [facility] (Outpatient) [address] [place], [address], 12/12/2023 13:42:47 12/12/19 24 12/12/2023 COMPR EHENS CHENCHO METAB OLIC PANEL chloride 101 mmol/ L 96-108 Not Available [facility] (Outpatient) [address] [place], [address], 12/12/2023 13:42:47 12/12/19 24 12/12/2023 COMPR EHENS CHENCHO METAB OLIC PANEL CO2 26 mmol/ L 21-35 Not Available [facility] (Outpatient) [address] [place], [address], 12/12/2023 13:42:47 12/12/19 24 12/12/2023 COMPR EHENS CHENCHO METAB OLIC PANEL BUN 15 mg/dL 6-19 Not Available [facility] (Outpatient) [address] [place], [address], 12/12/2023 13:42:47 12/12/19 24 12/12/2023 COMPR EHENS CHENCHO METAB OLIC PANEL creatinine 1.00 mg/dL 0.5-1. 5 Not Available [facility] (Outpatient) [address] [place], [address], 12/12/2023 13:42:47 12/12/19 24 12/12/2023 COMPR EHENS CHENCHO METAB OLIC PANEL glucose 105 mg/dL 70-99 high Not Available [facility] (Outpatient) [address] [place], [address], 12/12/2023 13:42:47 12/12/19 24 12/12/2023 COMPR EHENS CHENCHO METAB OLIC PANEL albumin 4.0 g/dL 3.9-4. 8 Not Available [facility] (Outpatient) [address] [place], [address], 12/12/2023 13:42:47 12/12/19 24 12/12/2023 COMPR EHENS CHENCHO METAB OLIC PANEL total protein 6.4 g/dL 6.5-8. 0 low Not Available [facility] (Outpatient) [address] [place], [address], 12/12/2023 13:42:47 12/12/19 24 12/12/2023 COMPR EHENS CHENCHO METAB OLIC PANEL calcium 9.1 mg/dL 8.4-10 .3 Not Available [facility] (Outpatient) [address] [place], [address], 12/12/2023 13:42:47 12/12/19 24 12/12/2023 COMPR EHENS CHENCHO METAB OLIC PANEL alkaline phosphatase 75 U/L 39-117 Not Available [facility] (Outpatient) [address] [place], [address], 12/12/2023 13:42:47 12/12/19 24 12/12/2023 COMPR EHENS CHENCHO METAB OLIC PANEL total bilirubin <0.2 mg/dL 0.0-1. 2 Not Available [facility] (Outpatient) [address] [place], [address], 12/12/2023 13:42:47 12/12/19 24 12/12/2023 COMPR EHENS CEHNCHO METAB OLIC PANEL AST 17 U/L 0-37 Not Available [facility] (Outpatient) [address] [place], [address], 12/12/2023 13:42:47 12/12/19 24 12/12/2023 COMPR EHENS CHENCHO METAB OLIC PANEL ALT 13 U/L 0-40 Not Available [facility] (Outpatient) [address] [place], [address], 12/12/2023 13:42:47 12/12/19 24 12/12/2023 COMPR EHENS CHENCHO METAB OLIC PANEL globulin 2.4 g/dL 1-4.8 Not Available [facility] (Outpatient) [address] [place], [address], 12/12/2023 13:42:47 12/12/19 24 12/12/2023 COMPR EHENS CHENCHO METAB OLIC PANEL eGFR 80 mL/mi n/1.7 3m2 >59 Estim ated glome rular filtr ation rate calcu lated using the CKD-E PI refit equat ion. Not Available [facility] (Outpatient) [address] [place], [address], 12/12/2023 13:42:47 12/12/19 24 12/12/2023 COMPR EHENS CHENCHO METAB OLIC PANEL anion gap 13 mmol/ L 10-20 Not Available [facility] (Outpatient) [address] [place] [address], [address], 12/12/2023 13:42:47 12/12/19 24 12/12/2023 C-JOAN CTIVE PROTE IN C reactive protein 7.2 mg/L 0.0-4. 0 high Not Available [facility] (Outpatient) [address] [place], [address], 12/12/2023 13:42:49 12/12/19 24 12/12/2023 SEDIM ENTAT ION RATE (ESR) ESR 7 mm/h 0-20 Not Available [facility] (Outpatient) [address] [place], [address], 12/12/2023 14:04:33 04/05/20 25 04/07/2025 ANATO RACHEAL PATHO LOGY path report [facility] [address] zafar - [place], [place] [id number] Lab Direc tor: Gomez medel MD Surgi rebecca Patho logy Repor t Acces opal #: [id number] FINAL PATHO LOGIC DIAGN OSIS: A. STOMA CH, ANTRU M, BIOPS Y: No patho logic abnor malit y. B. GASTR OESOP HAGEA L JUNCT ION, BIOPS Y: Erosi ve esoph agiti s. Steph ctron icall y Veronica d Out By Lumin guille anderson MD [facility]IN[facility] HISTO RY Preop erati ve diagn osis: Epiga stric abdom inal pain, nause a/vom iting Posto perat chencho diagn osis: Esoph agiti s, mild esoph ageal stric ture SPECI MENS SUBMI TTED: A: STOMA CH ANTRU M, BIOPS Y B: GASTR OESOP HAGEA L JUNCT ION, BIOPS Y GROSS DESCR IPTIO N A. STOMA CH ANTRU M, BIOPS Y: Recei gaston in forma dejah are 2 irreg ular montejo-p ink soft tissu e fragm ents measu ring on avera ge 0.4 x 0.2 x 0.1 cm which are submi tted in toto in singl e casse tte label ed A1. B. GASTR OESOP HAGEA L JUNCT ION, BIOPS Y: Recei gaston in forma dejah are 4 irreg ular montejo-p ink soft tissu e fragm ents measu ring on avera ge 0.4 x 0.3 x 0.1 cm which are submi tted in toto in singl e casse tte label ed B1. Gross ed by: Omero webb, MHS, PA( CP) [id number] 2024 Gross ing Staff : SAURAV gama Name: TIBURCIO PEDROZA : [id number] (Age: 74) Sex: M 2 Insti tutio n: [facility] Locat ion: [facility] Date of Opera tion: 2024 Date of Acces opal: 2024 Repor yonathan: 2024 15:17 Resul ts To: José Miguel soria MD, AB Alejandra Guillaume y Medic al Speci gilmar s Not Available [facility] (Outpatient) [address] [place], [address], 04/07/2025 17:28:18 Result Notes None recorded. Procedures Surgical History Date Name Laterality Status Provider Name and Address Organization Details Recorded Time 5 Trista - EGD completed José Miguel Weston MD [address] [place] [address], [phone], [facility] 06/14/2025 11:21:43 Abdirahman Weston - EGClive completed José Miguel Weston MD [address] [place] [address], [phone], [facility] 04/05/2025 13:42:24 Imaging Results None recorded. Procedure Notes None recorded. Medical Equipment None Reported. Allergies No known drug allergies Medications Name Sig Start Date Stop Date Status Note LastModified by Organization Details LastModified Time amoxicill in 500 mg capsule active Not Available Not Available Not Available prednison e 10 mg tablet PT HAS WRITTEN INSTRUCT IONS active Not Available Not Available No t Available aspirin 325 mg tablet Take 1 tablet every day by oral route. active Not Available Not Available No t Available prednison e 20 mg tablet TAKE ONE TABLET BY MOUTH EVERY DAY FOR 10 DAYS 01/11 completed Pt sattes he takes PRN 10/15/23 MV Not Available Not Available Not Available methotrex ate sodium 25 mg/mL injection solution INJECT 1ML 25MG) UNDER THE SKIN ONCE A WEEK active Not Available Not Available No t Available Tamiflu 75 mg capsule TAKE ONE CAPSULE BY MOUTH TWICE A DAY FOR 5 DAYS 05/15 completed Not Available Not Available Not Available triamcino lone acetonide 0.1 % topical cream APPLY A THIN LAYER TO THE AFFECTED AREA TOPICALL Y TWICE A DAY 07/01 completed Not Available Not Available Not Available cefadroxi l 500 mg capsule TAKE TWO CAPSULES BY MOUTH TWICE A DAY FOR 8 DAYS 07/01 completed Not Available Not Available Not Available oxycodone -acetamin ophen 5 mg-325 mg tablet 1 or 2 po q4h prn pain 10/18 completed Not Available Not Available Not Available methotrex ate sodium 2.5 mg tablet TAKE 8 TABLETS 20MG TOTAL) BY MOUTH EVERY WEEK; SPLIT DOSE INTO 4 TABLETS TWICE 12-24 HOURS APART 01/11 completed Not Available Not Available Not Available aspirin 325 mg tablet,de layed release 2007 active Take 1.00 tabs daily Not Available Not Available Not Available Meggan 180 mg tablet 2007 active Take 1.00 tabs daily prn Not Available Not Available Not Available doxycycli ne monohydra te 100 mg capsule TAKE 2 CAPSULES TOGETHER AT ONCE NOW 10/16 completed Not Available Not Available Not Available pantopraz ole 40 mg tablet,de layed release TAKE ONE TABLET BY MOUTH EVERY MORNING 30-60 MINUTES BEFORE MORNING AND EVENING MEAL TWO TIMES A DAY active Not Available Not Available No t Available olopatadi ne 0.1 % eye drops INSTILL 1 DROP INTO AFFECTED EYE(S) BY OPHTHALM IC ROUTE 2 TIMES PER DAY AT AN INTERVAL OF 6 TO 8 HOURS 07/03 completed Not Available Not Available Not Available omeprazol e 20 mg capsule,d elayed release Take 1 capsule every day by oral route for 30 days. 2008 active Not Available Not Available Not Avai lable aspirin 81 mg chewable tablet Chew 1 tablet every day by oral route. active Not Available Not Available No t Available folic acid 1 mg tablet TAKE ONE TABLET BY MOUTH EVERY DAY active Not Available Not Available No t Available hydrocodo ne 5 mg-acetam inophen 500 mg tablet active Not Available Not Available Not Available mupirocin 2 % topical ointment 07/03 completed Not Available Not Available Not Available clobetaso l 0.05 % topical ointment 09/28 completed apply to affected area as needed Not Available Not Available Not Available amoxicill in 875 mg-potass ium clavulana te 125 mg tablet TAKE ONE TABLET BY MOUTH TWICE A DAY UNTIL DONE 10/18 completed Not Available Not Available Not Available amoxicill in 500 mg-potass ium clavulana te 125 mg tablet TAKE 2 TO START THEN 1 TABLET BY MOUTH EVERY 12 HOURS FOR 10 DAYS 04/08 completed Not Available Not Available Not Available oxycodone 5 mg tablet 07/03 completed Not Available Not Available Not Available BD SafetyGli de Insulin Syringe 1 mL 29 gauge x 1/2 USE WEEKLY WITH METHOTRE XATE active Not Available Not Available No t Available EpiPen 0.3 mg/0.3 mL injection , auto-inje ctor INJECT IMMEDIAT MARY BETH IF STUNG 2018 active Not Available Not Available Not Avai lable chlorhexi dine gluconate 0.12 % mouthwash active Not Available Not Available No t Available ibuprofen active prn Not Available Not Keshia ilable Not Available methotrex ate sodium (8X2.5mg ) per rheumato logy 08/18 completed Not Available Not Available Not Available Percocet active Not Available Not Avai lable Not Available fexofenad ine 07/13 completed PRN Not Available Not Available Not Available Zostavax (PF) 19,400 unit/0.65 mL subcutane ous suspensio n 05/15 completed Not Available Not Available Not Available GaviLyte- G 236 gram-22.7 4 gram-6.74 gram-5.86 gram oral solution 05/01 completed Not Available Not Available Not Available Otezla 30 mg tablet TAKE ONE TABLET BY MOUTH TWICE A DAY active Not Available Not Available No t Available methotrex ate (PF) 12.5 mg/0.25 mL subcutane ous auto-inje ctor Inject 25 mg every week by subcutan eous route. 01/26 completed Not Available Not Available Not Available Shingrix (PF) 50 mcg/0.5 mL intramusc ular suspensio n, kit 07/03 completed Not Available Not Available Not Available apremilas t 10 mg (4)-20 mg (51) tablets in a dose pack Take by oral route. 2024 active started by Rheum Not Available Not Available Not Available Vitals None Recorded Social History Question Answer Notes LastModified by Organizat ion Details LastModified Time Do You Wear A Helmet When Biking? Yes Information not available 06/21/2015 What Is Your Level Of Caffeine Consumption? Moderate 2 Cups/day 09/20/21 Hw Information not available 09/20/2021 What Type Of Diet Are You Following? REGULAR Information not available 06/21/2015 Have There Been Any Changes To Your Family Or Social Situation? No Information not available 09/20/2021 Are There Any Guns Present In Your Home? No Information not available 06/21/2015 Do You Use Insect Repellent Routinely? Yes Information not available 09/20/2021 Live Alone Or With Others? With Others [email or web address] Information not available 09/14/2016 Patient Has Health Care Proxy Signed And In Chart Yes Spouse [email or web address] Information not available 08/08/2023 MOLST Form Signed And In Chart 08/28/2022 [email or web address] Information not available 08/28/2022 CCM Consent Discussion 05/01/2018 [email or web address] Information not available 05/01/2018 Marital Status Information not available 10/11/2011 What Was The Date Of Your Most Recent Tobacco Screening? 01/26/2025 10/16/23MV [email or web address] Information not available 01/26/2025 How Many Children Do You Have? 4 Information not available 10/11/2011 What Is Your Relationship Status? Information not available 07/13/2021 Do You Use Your Seat Belt Or Car Seat Routinely? Yes Information not available 07/13/2021 Seat Belts Used Routinely Yes Information not available 06/21/2015 Smoke Alarm In Home Yes Information not available 06/21/2015 Do You Have Smoke And Carbon Monoxide Detectors In Your Home? Yes Information not available 07/13/2021 Are You Passively Exposed To Smoke? No Information not available 07/13/2021 General Stress Level Medium Information not available 06/21/2015 Do You Use Sunscreen Routinely? Yes Information not available 09/20/2021 Sex: Male Functional Status Question Answer Note LastModified by Organizat ion Details LastModified Time Do you use any illicit or recreational drugs? No 09/20/21 hw Information not available 09/20/2021 Do you or have you ever used any other forms of tobacco or nicotine? No Information not available 07/13/2021 What is your level of alcohol consumption? Occasional very rarely 09/20/21 hw Information not available 09/20/2021 Are you currently employed? 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 Occasional walks 1 mile per day Information not available 09/20/2021 Mental Status None recorded. Family History Nothing Reported Notes:other (enter) Ischemic PACER, CAROTID. Hypertension none. Stroke none. Diabetes maternal grandmother. Cancer sister HODGKINS, BREAST. father. Stomach . Colon polyps none. Medical History Condition Response CARDIOVASCULAR RHEUMATOLOGIC Past Encounters Encounter ID Performer Location Encounter Start Date Encounter Closed Date Diagnosis/Indication Diagnosis SNOMED-CT Code Diagnosis ICD10 Code Diagnosis Note [id number] Nancy Martinez, [facility], OFFICE [address] [place] [address] 11/22/2000 10:00:00 12/15/2008 02:02:29 [id number] Nancy Martinez, [facility], OFFICE [address] [place] [address] 08/21/2001 11:15:00 12/15/2008 02:02:29 [id number] Jorge Graham MD , [facility], OFFICE [address] [place] [address] 09/03/2001 08:00:00 12/15/2008 02:02:29 [id number] [facility] RADIOLOGY Technologi Radiology , [facility] [address] [facility] [place] [address] 09/29/2001 09:00:00 12/15/2008 02:02:29 [id number] MD BRYAN Meyer, [facility], OFFICE [address] [place] [address] 11/12/2002 09:49:01 12/15/2008 02:02:29 [id number] [facility] LAB LAB - [facility] [address] [facility] [place] [address] 11/20/2002 07:50:41 12/15/2008 02:02:29 [id number] MD BRYAN Meyer, [facility], OFFICE [address] [place] [address] 12/31/2002 10:31:42 12/15/2008 02:02:29 [id number] [facility] - [address] [place] [address] 01/01/2003 15:51:14 12/15/2008 02:02:29 [id number] Jorge Graham MD , [facility], OFFICE [address] [place] [address] 04/08/2003 08:05:53 12/15/2008 02:02:29 [id number] Jorge Graham MD , [facility], OFFICE [address] [place] [address] 08/25/2003 13:28:44 08/26/2003 09:38:41 [id number] DARCI Vu, [facility], OFFICE [address] [place] [address] 10/11/2003 11:10:07 10/11/2003 17:02:12 [id number] Jorge Graham MD , [facility], OFFICE [address] [place] [address] 10/22/2003 11:26:07 10/26/2003 09:33:13 [id number] [facility] RADIOLOGY Technologi st Radiology , [facility] [address] [facility] [place] [address] 10/11/2004 16:51:15 10/12/2004 08:33:53 [id number] [facility] RADIOLOGY Technologi [facility] [place] , [facility] [address] [place], [place] [address] 10/11/2004 00:00:00 12/15/2008 02:02:29 [id number] MD BRYAN Meyer, [facility], OFFICE [address] [place] [address] 10/11/2004 16:17:18 10/12/2004 08:37:13 [id number] [facility] LAB LAB - [facility] [address] [facility] [place] [address] 10/11/2004 16:49:25 10/11/2004 16:50:03 [id number] MD BRYAN Gutierrez III, [facility], OFFICE [address] [place] [address] 02/07/2005 14:01:57 02/08/2005 08:51:11 [id number] MD BRYAN Meyer, [facility], OFFICE [address] [place] [address] 02/09/2005 11:01:19 02/14/2005 08:06:04 [id number] MD BRYAN Meyer, [facility], OFFICE [address] [place] [address] 02/19/2005 15:14:15 02/20/2005 08:55:06 [id number] MD BRYAN Meyer, [facility], OFFICE [address] [place] [address] 02/26/2005 11:28:03 02/27/2005 09:07:47 [id number] Nancy Martinez FP, [facility]- [address] [place] [address] 02/27/2005 00:00:00 12/15/2008 02:02:29 [id number] MD BRYAN Meyer, [facility], OFFICE [address] [place] [address] 05/17/2005 14:50:45 05/18/2005 07:39:35 [id number] [facility] LAB LAB - [facility] [address] [place] [address] 05/17/2005 15:33:37 05/17/2005 15:34:00 [id number] Naren ADAMS, [facility], OFFICE [address] [place] [address] 05/21/2005 09:11:10 05/22/2005 09:24:47 [id number] Jorge Graham MD , [facility], OFFICE [address] [place] [address] 02/21/2007 15:06:09 02/24/2007 09:42:53 [id number] MD BRYAN Meyer, [facility], OFFICE [address] [place] [address] 07/18/2007 13:44:17 07/21/2007 07:55:01 [id number] MD BRAYN Meyer, [facility], OFFICE [address] [place] [address] 07/31/2007 08:20:48 08/01/2007 07:40:12 [id number] MD BRYAN Meyer, [facility], OFFICE [address] [place] [address] 09/20/2008 15:25:49 12/15/2008 02:02:29 [id number] [facility] LAB LAB - [facility] [address] [place] [address] 09/28/2008 07:44:44 09/28/2008 07:44:48 [id number] [facility] RADIOLOGY Technologi Radiology , [facility] [address] [place] [address] 10/30/2008 13:34:10 11/01/2008 09:24:48 [id number] Mckenzie Stovall NP , [facility], [address] [place] [address] 10/30/2008 12:16:52 12/15/2008 02:02:29 [id number] Jorge Graham MD , [facility], OFFICE [address] [place] [address] 04/19/2009 13:22:46 04/20/2009 09:42:50 [id number] [facility] RADIOLOGY Technologi [facility] [place] , [facility] [address] [facility] [place] [address] 04/19/2009 13:52:53 04/21/2009 13:43:32 [id number] Cuba Zaragoza PA-C , [facility], [address]ICE [address] [place] [address] 06/23/2009 09:17:42 06/28/2009 08:46:17 [id number] Rodrigo Sainz MD , [facility], OFFICE [address] [place] [address] 06/25/2009 10:32:03 07/01/2009 10:36:50 [id number] Jorge Graham MD , [facility], OFFICE [address] [place] [address] 07/05/2009 16:29:08 07/06/2009 16:48:49 [id number] Jorge Graham MD , [facility], OFFICE [address] [place] [address] 07/15/2009 13:31:53 07/15/2009 15:31:36 [id number] MD BRYAN Meyer, [facility], OFFICE [address] [place] [address] 08/11/2009 08:04:00 08/11/2009 13:54:19 [id number] [facility] LAB LAB - [facility] [address] [facility] [address] 06/23/2009 09:50:36 06/23/2009 09:50:41 [id number] [facility] LAB LAB - [facility] [address] [facility] [place] [address] 07/15/2009 14:19:08 07/15/2009 14:19:13 [id number] MD BRYAN Meyer, [facility], OFFICE [address] [place] [address] 01/10/2010 08:04:32 01/10/2010 09:13:11 [id number] Jorge Graham MD , [facility], OFFICE [address] [place] [address] 05/26/2010 13:33:58 05/30/2010 10:01:43 [id number] Jorge Graham MD , [facility], OFFICE [address] [place] [address] 05/30/2010 08:26:39 05/30/2010 09:40:00 [id number] Jorge Graham MD , [facility], OFFICE [address] [place] [address] 07/06/2010 15:29:00 07/07/2010 08:54:05 [id number] Flavio Norton MD Rheumatol ogy, [address] [place] [address] 09/28/2010 14:06:11 10/09/2010 10:04:57 [id number] Flavio Norton MD Rheumatol ogy, [address] [place] [address] 11/02/2010 15:12:48 11/08/2010 09:20:47 [id number] Jorge Graham MD , [facility] [facility] [place], OFFICE [address] [place] [address] 06/22/2011 09:10:55 06/25/2011 11:47:15 [id number] [facility] RADIOLOGY Technologi st Radiology , [address] [place] [address] 06/22/2011 09:58:43 06/22/2011 14:41:51 [id number] Regina Madrigal, PT Physical Therapy, [address] [place] [address] 1 06/27/2011 12:29:22 06/28/2011 11:40:40 [id number] Regina Madrigal, PT Physical Therapy, [address] [place] [address] 1 07/26/2011 08:30:09 07/26/2011 13:51:14 [id number] MD BRYAN Meyer, [facility] [place] [place], OFFICE [address] [place] [address] 1 08/03/2011 12:14:16 08/03/2011 12:53:01 [id number] Regina Madrigal, PT Physical Therapy, [address] [address] 08/16/2011 07:59:11 08/17/2011 08:26:09 [id number] Jorge Graham MD , [facility] [place], OFFICE [address] [place] [address] [place] [address] 1 09/28/2011 08:25:17 09/28/2011 09:11:57 [id number] MD BRYAN Meyer, [facility] [place], OFFICE [address] [place] [address] [place] [address] 1 12/06/2011 11:33:18 12/06/2011 12:08:26 [id number] MD BRYAN Meyer, [facility] [place], OFFICE [address] [place] [address] [place] [address] 1 05/26/2012 13:45:38 05/26/2012 14:07:05 [id number] Jorge Graham MD , [facility] [place], [address] [place] [address] 1 09/12/2012 13:28:17 09/12/2012 14:01:12 [id number] MD BRYAN Meyer, [facility] [place], OFFICE [address] [place] [address] [place] [address] 1 02/13/2013 09:55:47 02/16/2013 07:42:06 [id number] Denver Rios DPM Podiatry, [address] [place] [address] 05/18/2013 14:47:40 05/18/2013 16:26:21 [id number] Denver Rios DPM Podiatry, [address] [address] 1 06/08/2013 15:23:54 06/08/2013 16:04:37 [id number] Denver Rios DPM Podiatry, [address] [address] 1 07/15/2013 09:46:52 07/17/2013 11:16:20 [id number] MD BRYAN Meyer, [facility] [place] [facility], OFFICE [address] [place] [address] [place] [address] 1 07/24/2013 11:21:37 07/24/2013 12:15:52 [id number] MD BRYAN Meyer, [facility] [place], OFFICE [address] [place] [address] [address] [place] [address] 1 09/07/2013 14:56:39 09/07/2013 15:24:37 [id number] Denver Rios DPM Podiatry, [address] [place] [address] 1 09/18/2013 11:56:42 09/23/2013 16:13:34 [id number] Jorge Graham MD , [facility] [place], [address] [place] [address] 1 10/16/2013 09:49:00 10/16/2013 10:33:01 [id number] Denver Rios DPM Podiatry, [address] [place] [address] 1 10/26/2013 12:28:39 11/11/2013 16:17:15 [id number] Regina Madrigal, PT Physical Therapy, [address] [place] [address] 1 10/29/2013 15:01:15 10/30/2013 09:13:20 [id number] Regina Madrigal PT Physical Therapy, [address] [place] [address] 1 11/03/2013 15:07:00 11/04/2013 11:20:15 [id number] Regina Madrigal PT Physical Therapy, [address] [place] [address] 11/05/2013 14:37:39 11/06/2013 10:22:09 [id number] Regina Madrigal, PT Physical Therapy, [address] [place] [address] 1 11/10/2013 08:00:18 11/11/2013 11:16:04 [id number] Regina Madrigal, PT Physical Therapy, [address] [place] [address] 1 11/13/2013 08:29:14 11/16/2013 09:53:13 [id number] Denver Rios DPM Podiatry, [address] [place] [address] 1 11/27/2013 10:30:43 11/30/2013 15:53:45 [id number] Denver Rios DPM Podiatry, [address] [place] [address] 1 12/21/2013 11:54:51 12/21/2013 14:19:52 [id number] Jorge Graham MD , [facility] [place] [facility], OFFICE [address] [place] [address] [place] [address] 1 01/26/2014 14:44:21 01/27/2014 08:52:56 [id number] [facility] Podiatry, [address] [address] 1 01/29/2014 10:07:13 02/02/2014 08:59:29 [id number] Rodrigo Sainz MD , [facility], OFFICE [address] [place] [address] 04/16/2015 14:14:06 04/16/2015 14:51:54 [id number] Jorge Graham MD , [facility] [place], OFFICE [address] [place] [address] [place] [address] 1 06/21/2015 08:42:19 06/22/2015 10:18:43 [id number] George Norman MD , [facility], [address] [place] [address] 1 05/15/2016 08:01:42 05/16/2016 11:59:59 [id number] Jorge Graham MD , [facility] [place], [address] [place] [address] 1 09/14/2016 08:49:40 09/14/2016 10:57:52 [id number] Jael Ha , [facility], OFFICE [address] [place] [address] 09/14/2017 13:28:31 09/14/2017 15:38:09 [id number] Jorge Graham MD , [facility] [place], [address] [place] [address] 1 10/22/2017 14:40:54 10/23/2017 10:53:35 [id number] Michelle Lorenzana, OT Physical Therapy, [address] [address] 1 10/29/2017 11:57:08 10/30/2017 08:32:20 [id number] José Miguel Weston MD ASP, [address] [place] [address] 1 12/02/2017 06:57:52 12/02/2017 14:09:48 [id number] Jorge Graham MD , [facility], [address] [place] [address] 1 05/01/2018 14:09:58 05/01/2018 14:54:15 [id number] Sangeetha Flor MD , [facility] OFFICE [address] [place] [address] [place] [address] 1 08/20/2018 15:58:22 08/20/2018 17:07:02 [id number] Erica Beckett D.O. , [facility] [place], OFFICE [address] [place] [address] [place] [address] 1 08/29/2018 15:16:44 08/29/2018 15:21:11 [id number] Jorge Graham MD , [facility] OFFICE [address] [place] [address] [place] [address] 1 07/03/2019 08:50:03 07/03/2019 09:35:54 [id number] George Norman MD [address] [place] [address] 1 07/13/2021 09:04:37 07/13/2021 10:02:10 [id number] George Norman MD [address] [place] [address] 1 08/10/2021 09:06:47 08/10/2021 09:31:29 [id number] George Norman MD [address] [place] [address] 1 08/23/2021 11:20:43 08/24/2021 11:37:11 [id number] George Norman MD [address] [place] [address] 1 09/20/2021 10:18:33 09/20/2021 12:41:31 [id number] George Norman MD , [facility] OFFICE [address] [place] [address] [place] [address] 1 10/18/2021 11:39:14 11/12/2021 16:29:57 [id number] Manoj Tate MD Podiatry, [address] [place] [address] 12/11/2021 13:35:42 12/11/2021 14:52:25 [id number] Tracey Goins MD Podiatry, [address] [place] [address] 1 12/15/2021 14:39:21 12/18/2021 09:53:26 [id number] Tracey Goins MD Podiatry, [facility] [address] [place] [address] 1 01/22/2022 12:21:05 01/22/2022 14:11:08 [id number] Myra Quinteros MD Rhe[facility] [address] [place] [address] 1 10/03/2022 11:45:40 10/08/2022 13:37:38 [id number] Erica ADAMS, [facility] [place], OFFICE [address] [place] [address] [place] [address] 1 09/13/2022 09:27:46 10/04/2022 14:37:13 [id number] Beverly Shodextari . MD ADAMS, [facility] [place], [address] [place] [address] 1 09/26/2022 11:09:52 10/01/2022 10:24:34 [id number] Beverly Ashwinitari . MD ADAMS, [facility] [place], OFFICE [address] [place] [address] [place] [address] 1 11/09/2022 11:00:06 11/12/2022 09:16:22 [id number] George Norman MD , [facility] [place], [address] [place] [address] 1 07/01/2023 11:24:42 07/01/2023 12:24:41 [id number] Nagi Caro MD , [facility] [place], [address] [place] [address] 10/16/2023 09:25:32 10/16/2023 14:07:04 [id number] Beverly Ashwinitari . MD ADAMS, [facility] [place], OFFICE [address] [place] [address] [address] [place] [address] 1 04/08/2024 13:50:31 04/08/2024 14:58:04 [id number] MD BRYAN BARBA, [facility] [place], OFFICE [address] [place] [address] [address] [place] [address] 1 01/11/2025 13:52:41 01/11/2025 16:22:18 [id number] MD BRYAN BARBA, [facility] [place], [address]ICE [address] [place] [address] 1 01/26/2025 14:28:19 01/28/2025 10:44:48 [id number] José Miguel Weston MD Endoscopy , [address] [place] [address] 1 04/05/2025 12:44:29 04/05/2025 14:20:21 [id number] José Miguel Weston MD Endoscopy , [address] [place] [address] 1 06/14/2025 09:14:20 06/14/2025 12:43:07 Health Concerns Section Related Observation LastModified by Organization Detai ls LastModified Time None Recorded Concern Status LastModified by Organization Details LastModified Time None Recorded Advance Directives Directive None Recorded Payers Insurance Date Sequence Insurance Name Policy Number Policy Crowe Covered Member ID Crowe Member ID Guarantor Name 06/14/2025 1 MEDICARE B-CA: [facility] [employer] Tiburcio Flores [id number] Tiburcio Flores 04/08/2024 1 [employer] PLAN (HMO) [id number] Tiburcio Flores [id number] Tiburcio Flroes 04/08/2024 1 BLUE CROSS-[place]: [employer] (PPO) [id number] Tiburcio Flores [id number] Tiburcio Flores 04/08/2024 1 [facility] [employer] PLAN (EPO) [id number] Tiburcio Flores [id number] Tiburcio Flores 06/14/2025 2 [facility] [id number] Mckenzie Flores [id number] Tiburcio Flores 06/11/2025 [facility] - SPECIALITY CLAIMS (MEDICARE [facility] Tiburcio Flores [id number] Tiburcio Flores
== END 2025-06-22 14:27 | disposition home or self-care (01) ==
LOC: HO.RHE 13:41
PROVIDERS: Visit Provider Student in an Organized Health Care Education/Training Program
DX: L40.50 Arthropathic psoriasis, unspecified (principal); Z79.631 Long term (current) use of antimetabolite agent; Z79.61 Long term (current) use of immunomodulator
CPT/HCPCS: 99214; G2211

== ENCOUNTER → 2025-06-22 13:40 | Outpatient (BNVA) | payer MEDICARE, OTHER, SELFPAY | PROVIDERS: Visit Provider Student in an Organized Health Care Education/Training Program | DX: L40.50 Arthropathic psoriasis, unspecified (principal); M25.50 Pain in unspecified joint; Z79.631 Long term (current) use of antimetabolite agent; Z79.61 Long term (current) use of immunomodulator | CPT/HCPCS: 99212 ==

== ENCOUNTER 2025-10-20 13:45 | Outpatient (AMB) | payer MEDICARE, OTHER, SELFPAY ==
--- NOTE | 2025-10-20 14:27 | MHC.OFFVIS ---
Vital Signs 10/20/25 14:32 Height 5 ft 8 in Weight 157 lb 13.616 oz BMI 24.0 BP 120/72 Blood Pressure Location Lt brachial Position Sitting Pulse 76 Pulse Source Pulse Oximeter Pulse Oximetry (%) 98 Oxygen Delivery Method Room Air Intake Visit Reasons: PsA Intake Note: Patient presents for PsA follow up. Allergies bee venom protein (honey bee) Adverse Reaction (Unknown, Verified 10/20/25 14:31) Unknown Medication List - Last Reconciled 10/20/25 by Donna Scott MD apremilast 30 mg PO BID aspirin 325 mg PO DAILY folic acid 1 mg PO DAILY ibuprofen 400 mg PO .bid PRN insulin syringe-needle U-100 Use weekly with methotrexate methotrexate sodium 15 mg (0.6 mL) subcut QWEEK 30 days HPI Comments Details: Patient is a 74-year-old male with psoriasis complicated by psoriatic arthritis here today for follow up Interval History: Patient last seen 06/22/25 with me - On methotrexate 25mg SC every week, folic acid 1mg daily, Otezla 30mg bid - Doing better on increased Mtx - still with intermittent flares, so added Otezla - Feels the otezla has improved his joint pain Today - On methotrexate 15mg SC every week, folic acid 1mg daily, Otezla 30mg bid - LFTs elevated 05/2025, methotrexate decreased to 15mg weekly with improved labs - Has had worsening symptoms since decreasing the dose of mtx: pain in the right trejo then on the left. Pain in wrists and hands with swelling to the fingers - Had an episode of chest pain radiating to the right, concerned for cardiac etiology. Has had EKG, ECHO, Chest XR - all overall unremarkable Rheumatologic History: dx 05/2023 MTX 05/2023 partially effective advanced to 25 mg subcu 03/2024 effective Initial history with Dr. Cisse: This is a 72-year-old male who presents for evaluation of multiple joint pain and swelling. The condition started years ago with pain and swelling affecting 1 joint or multiple joints at the same time like his elbow, wrist, hands, fingers, knees, ankles, feet. The pain lasts a few days to 1 week. Patient usually takes ibuprofen 600 mg 3 to 4 times a day with rapid resolution of the pain in 1-2 days but the swelling persists for about a week. He states that those flares have become much more frequent recently. Towards the end of last year he went to urgent care due to swelling from his left wrist going all the way up to his forearm. He was prescribed antibiotics with improvement in about 1 week. In the past he was prescribed prednisone by his PCP for similar attacks of joint pain with dramatic improvement. He states that 10 years ago he was having intermittent severe chest pain. He went to urgent care and was told he might have pericarditis and was advised to take high doses of by ibuprofen which gave him dramatic relief. He states that he still gets those attacks of chest pain 2 to 3 times a year rapidly resolved with ibuprofen. He mentions that he gets skin rashes in the umbilicus and lower abdomen as well as rashes on his fingers. Those were never formally assessed by a media developer. Patient gets low back pain. Sometimes worse in the morning associated with stiffness, the stiffness can last all day. Patient also mentions that he is quite active. [place] takes care of horses, cats, dogs and his who has dementia. States that his daughter has Jin's thyroiditis and 2 sons have Crohn's disease. He denies any fevers or weight changes. Denies any blood or froth in urine. Most recent colonoscopy 2018 was unremarkable Current Rheumatology Medication(s): Methotrexate 15 mg sc every week Folic acid 1 mg everyday [facility] P-ANCA and MPO antibodies positive Pericarditis Ostium secundum type atrial septal defect Patent foramen ovale Atopic dermatitis Diverticulitis of colon Acute ill-defined cerebrovascular disease Acute pericarditis, unspecified Surgical History Hx of tonsillectomy S/P colonoscopy Family History Maternal Grandmother Diabetes Sister Hx of breast cancer Hodgkin lymphoma Father Stomach disorder Daughter Jin's thyroiditis Son Crohn disease Son Crohn disease Social History Alcohol intake: current Alcohol intake frequency: holidays/special occasions only Patient Tobacco Use Status: Never used Tobacco Current occupational status: retired Current occupation: software tester Review of Systems Narrative Review of Systems Constitutional: Denies fever, chills, weight loss ENT: Denies vision changes, eye pain or eye redness, dental caries, dry mouth GI: Denies nausea, vomiting, diarrhea, abdominal pain, change in BM Pulm: Denies SOB, WARD, hemoptysis, wheezing Skin: Denies Raynaud's, rash, nail changes, photosensitivity, PHARMACEUTICAL COMPOUNDING SUPERVISOR: Denies headaches, weakness, paresthesias, recurrent falls MSK: as per HPI All other systems reviewed and are unremarkable except noted above Physical Exam Exam Exam: Vital signs reviewed Physical Examination CONSTITUITIONAL Patient alert and cooperative. Well appearing and in no apparent painful distress MSK Hands Right Hand: Able to make a fist. No swelling or tenderness to palpation of the MCPs, PIPs or DIPs. No deformities noted. Left Hand: Able to make a fist. No swelling or tenderness to palpation of the MCPs, PIPs or DIPs. No deformities noted. Wrists Right Wrist: Full ROM to flexion and extension. No swelling or TTP Left Wrist: Full ROM to flexion and extension. No swelling or TTP Elbows Right Elbow: Full ROM. No swelling or TTP. No TTP of the medial epicondyle. No TTP of the lateral epicondyle Left Elbow: Full ROM. No swelling or TTP. No TTP of the medial epicondyle. No TTP of the lateral epicondyle Shoulders Right shoulder: Full ROM. No swelling noted. No TTP of the AC joint. No TTP of the subacromial bursa. No TTP of the posterior shoulder Left shoulder: Full ROM. No swelling noted. No TTP of the AC joint. No TTP of the subacromial bursa. No TTP of the posterior shoulder Hips Right hip: Good ROM. No pain elicited with hip flexion/internal rotation/external rotation Left hip: Good ROM. No pain elicited with hip flexion/internal rotation/external rotation Hip bursa: No tenderness to palpation bilaterally Knees Right knee: Full ROM. No swelling noted. No TTP of the knee joint line. No TTP of pes anserine bursa Left knee: Full ROM. No swelling noted. No TTP of the knee joint line. No TTP of pes anserine bursa. Ankles Right ankle: Good ankle dorsiflexion and plantar flexion. No swelling. No TTP of the ankle joint Left ankle: Good ankle dorsiflexion and plantar flexion. No swelling. No TTP of the ankle joint Feet Right foot: Negative squeeze test Left foot: Negative squeeze test Tender points? No tenderness to palpation of the bilateral trapezius, supraspinatus, anterior costochondral junctions, bilateral suboccipital muscle insertions SKIN No rashes Results Reviewed Results Reviewed: 06/15/25 Kelly 07/19/25 Kelly WBC 7.54 Hb 13.6 Plt 336 BUN 12 9 Cr 1.10 0.90 eGFR 71 90 AST 38 H 21 ALT 41 H 17 ESR 6 CRP <3.0 Assessment & Plan Assessment & Plan (1) Psoriatic arthritis: Comment: dx 05/2023 MTX 05/2023 partially effective advanced to 25 mg subcu 03/2024 effective Code(s): L40.50 - Arthropathic psoriasis, unspecified Category: Medical Plan: #PsA Patient is a 74-year-old male with psoriasis complicated by psoriatic arthritis here today for follow up. After decreasing the methotrexate dose, having more flares of his PsA manifested by swelling and pain to feet and hands Limited escalation of methotrexate due to liver abnormalities on higher doses Will stop Otezla and ad Enbrel Plan - Methotrexate 15mg SC every week - Folic acid 1mg every day - Stop Otezla - Start Enbrel 50mg SC every week - Follow up blood work from [facility] 4 months - Labs before visit: CBC, CMP, ESR, CRP (2) penitentiary methotrexate user: Code(s): Z79.631 - superintendent marine oil terminal (current) use of antimetabolite agent Category: Medical Plan: #Long-term Current Use of Methotrexate Discussed with patient the benefits and risks of methotrexate for managing their rheumatic condition Benefits include reduced pain, reduced mortality, maintenance of remission and reduction of flares Risks include oral ulcers, photosensitivity, hepatotoxicity, hematologic toxicity, pneumonitis, flu-like symptoms (especially day after administration), nodulosis, lymphomas ? Limit alcohol and avoid Bactrim ? Monitoring: ?CBC, BMP, LFTs every 3-4 months and hepatitis serologies as needed (3) Encounter for monitoring of etanercept therapy: Code(s): Z51.81 - Encounter for therapeutic drug level monitoring; Z79.620 - superintendent marine oil terminal (current) use of immunosuppressive biologic Plan: #Long-term Use of TNF Inhibitors: Enbrel Discussed with the patient the benefits and risks of TNF inhibitors for the management of the rheumatic condition Benefits include reduce pain, maintenance of remission and reduction of flares as well as progression of the disease Risks include injection sites/infusion reactions, serious infections (such as bacterial infections, opportunistic infections), malignancy, delaminating syndromes, autoimmune phenomena, CHF exacerbations, palmar plantar psoriasis and cytopenias Recommended rotating injection sites, and holding medication during and for up to 1 week after resolution of a febrile illness or open skin wound Plan I spent 30 minutes reviewing the record and labs, taking a history, examining the patient, discussing the treatment plan, ordering diagnostic work up and documenting in the medical record Orders: Orders Complete Blood Count Auto Diff 4 Months - Other longterm (current) drug therapy C Reactive Protein 4 Months - Other remote computer terminal operator (current) drug therapy Erythrocyte Sedimentation Rate 4 Months - Other remote computer terminal operator (current) drug therapy Hepatitis B,C Profile 4 Months - Other longterm (current) drug therapy Comprehensive Met. Panel 4 Months - Other longterm (current) drug therapy T Spot TB 4 Months - Other longterm (current) drug therapy Medications: New etanercept (Enbrel SureClick) 50 mg subcut QWEEK 4 mL 5RF L40.50 - Arthropathic psoriasis, unspecified Refilled folic acid 1 mg PO DAILY 90 tabs 1RF Discontinued apremilast Discontinued Reason: Doctor's Order 30 mg PO BID 180 tabs 0RF L40.50 - Arthropathic psoriasis, unspecified Coding Level of Care Code Est Pt Level 4 (19829) Complex visit Add On G2211 Diagnoses Psoriatic arthritis L40.50 penitentiary methotrexate user Z79.631 Encounter for monitoring of etanercept therapy Z51.81; Z79.620
[2025-10-20 14:32] VITALS: BP 120/72; PULSE 76; O2SAT 98; BMI 24.0
--- OUTSIDE RECORDS SUMMARY | 2025-10-20 16:51 | XMS_ITS | Encounter Summary ---
Author Organization [facility] Address [address] [place] [phone] Phone Care Team Providers Care Biology Internship Name Role Phone Jorge Graham MD Primary Care Provider [phone] Bell Choi PA-C Primary Care Provider + [phone] Encounter Details Date Type Department Care Team (Late Contact Info) Description 02/13/2019 Procedure Pass OR Admitting Dept - Virtual Department [address] [place] [address] Social History Tobacco Use Types Packs/Day Years [...] as of this encounter Plan of Treatment Upcoming Encounters Date Type Department Care Team (Late st Contact Info) Description 12/15/2025 11:30 AM EST Office Visit [facility] [address] [place] [phone] Unknown, Unknown, Yara Roberts PA-C [address] [place] [phone] [email or web address] documented as of this encounter Visit Diagnoses Not on filedocumented in this encounter Care Teams Biology Internship Relationship Specialty Start Date End Date Jorge Graham MD [email or web address] PCP - General Family Medicine 02/05/19 10/24/22 Bell Choi PA-C [address] [place] [phone] [email or web address] PCP - General Cardiology 10/25/22 documented as of this encounter Additional Source Comments The information contained in this document represents components of the legal health record. It is not the complete legal health record.[facility]
--- OUTSIDE RECORDS SUMMARY | 2025-10-20 16:51 | XMS_ITS | Encounter Summary ---
Author Organization [facility] Address [address] [place] [address] Phone Care Team Providers Care Ambulette Driver Name Role Phone Bell Choi PA-C Primary Care Provider [phone] Encounter Details Date Type Department Care Team (Late st Contact Info) Description 07/25/2023 Transcribe Orders [facility] Specimen Processing [address] [place] [address] Bell Choi PA-C [address] [place] [phone] [email or web address] Social History Tobacco Use Types Packs/Day Years Used Date Smoking Tobacco: Never Smokeless Tobacco: Never Alcohol Use Standard Drinks/Week Comments Not Currently 0 (1 standard drink = 0.6 oz pur e alcohol) Education Answer Date Recorded Are you interested in more education? Not on angle e 03/23/2023 Are you concerned about learning? Not on file 03/23/2023 No 03/23/2023 No 03/23/2023 Digital Access Answer Date Recorded No 04/19/2023 No 04/19/2023 Reliable internet access at home? Not on file 04/19/2023 Device with a working camera? Not on file Sex and Gender Information Value Date Recorded Sex Assigned at Not on file Legal Sex Male 5:18 PM EST Gender Identity Not on file Sexual Orientation Not on file documented as of this encounter Plan of Treatment Upcoming Encounters Date Type Department Care Team (Late Contact Info) Description 12/15/2025 11:30 AM EST Office Visit [facility] [address] [place] [phone] Unknown, Unknown, Yara Roberts PA-C [address] [phone] documented as of this encounter Visit Diagnoses Not on filedocumented in this encounter Care Teams Ambulette Driver Relationship Specialty Start Date End Date Bell Choi PA-C [address] [place] [phone] [email or web address] PCP - General Cardiology 10/25/22 documented as of this encounter Additional Source Comments The information contained in this document represents components of the legal health record. It is not the complete legal health record.[facility]
--- OUTSIDE RECORDS SUMMARY | 2025-10-20 16:51 | XMS_ITS | Encounter Summary ---
Author Organization [facility] Address [address] [place] [address] Phone Care Team Providers Care Oil Lease Operator Name Role Phone Bell Choi PA-C Primary Care Provider Encounter Details Date Type Department Care Team (Late st Contact Info) Description 07/22/2025 Procedure Pass [facility] [address] [place] [address] Social History Tobacco Use Types Packs/Day Years [...] AM EST Office Visit [facility] [address] [place], [place] [id number] Unknown, Unknown, Yara Roberts PA-C [address] [address] documented as of this encounter Visit Diagnoses Not on filedocumented in this encounter Care Teams Oil Lease Operator Relationship Specialty Start Date End Date Bell Choi PA-C [address] [place] [phone] [email or web address] PCP - General Cardiology 10/25/22 documented as of this encounter Additional Source Comments The information contained in this document represents components of the legal health record. It is not the complete legal health record.[facility]
--- OUTSIDE RECORDS SUMMARY | 2025-10-20 16:51 | XMS_ITS | Clinical Summary ---
Author Organization [facility] Address [address] [place] [address] Phone Care Team Providers Care Stock Analyst Name Role Phone Bell Choi PA-C Primary Care Provider [phone] Allergies Active Allergy Reactions Criticality Noted Date Comments Mold Extracts Unknown Low 02/05/2019 Medications aspirin 325 MG tablet Take 325 mg by mouth daily. Active EPINEPHrine 0.3 mg/0.3 mL auto-injector INJECT IMMEDIATELY IF STUNG 3 9 Active methotrexate sodium 25 mg/mL injection INJECT 15MG 0.6ML TOTAL) UNDER THE SKIN EVERY WEK 5 Active pantoprazole (PROTONIX) 40 MG tablet TAKE ONE TABLET BY MOUTH EVERY MORNING 30-60 MINUTES BEFORE MORNING AND EVENING MEAL TWO TIMES A DAY 5 Active folic acid (FOLVITE) 1 MG tablet Take 1 tablet by mouth every morning. 5 Active OTEZLA 30 mg tablet Take 1 tablet by mouth 2 (two) times a day. 5 Active BD SAFETYGLIDE INSULIN SYRINGE 1 mL 29 gauge x 1/2 Syrg USE WEEKLY WITH METHOTREXATE 5 Active Active Problems Problem Noted Date Diagnosed Date Closed fracture of right ankle Encounters Date Type Department Care Team Description 08/26/2025 12:02 PM EDT - 08/26/2025 11:59 PM EDT Hospital Encounter [facility] Echo Lab [address] [place] [address] Hien Mathews PA Discharge Disposition: Home or Self Care 07/22/2025 Procedure Pass [facility] [address] [place] [address] 07/22/2025 Transcribe Orders Virtual Department [address] [place] [address] Hien Mathews PA Other chest pain (Primary Dx) from Last 3 Months Social History Tobacco Use Types Packs/Day Years [...] on file Sexual Orientation Not on file Last Filed Vital Signs Vital Sign Reading Time Taken Comments Blood Pressure 130/82 07/14/2025 9:40 AM EDT Pulse 82 07/14/2025 9:40 AM EDT Temperature 36.7 C (98 F) 07/14/2025 9:40 AM EDT Respiratory Rate 16 07/14/2025 9:40 AM EDT Oxygen Saturation 98% 07/14/2025 9:40 AM EDT Inhaled Oxygen Concentration - - Weight 79.4 kg (175 lb) 10/25/2022 4:50 PM EST Height 172.7 cm (5' 8 ) 10/25/2022 4:50 PM EST Body Mass Index 26.61 10/25/2022 4:50 PM EST Plan of Treatment Upcoming Encounters Date Type Department Care Team (Late st Contact Info) Description 12/15/2025 11:30 AM EST Office Visit [facility] 10 [place] [address] Unknown, Unknown, Yara Roberts PA-C [address] [address] [email or web address] Health Maintenance Due Date Last Done Comments LIPID PANEL 1951 DEPRESSION SCREENING 1963 HEPATITIS C SCREENING 1969 COLOGUARD 1996 FIT TEST 1996 FOBT 1996 SIGMOIDOSCOPY 1996 VIRTUAL COLONOSCOPY 1996 RSV VACCINE (1 - Risk 50-74 years 1-dose series) 2001 INFLUENZA VACCINE (#1) 2025 , 08/19/2023, 09/13/2022, Additional history exists COVID-19 VACCINE (2024- season) 2025 08/10/2024, 09/12/2023, 09/07/2022, Additional history exists COLONOSCOPY 12/02/2027 06/14/2025 COLORECTAL CANCER SCREENING 12/02/2027 Adult Td,Tdap Booster 07/03/2029 07/03/2019 , 10/22/2017, 07/18/2007 PNEUMOCOCCAL VACCINES (50+ years) Completed 07/03/2019, 10/22/2017 SMOKING STATUS SCREENING (Once After 26 Yrs) Completed 08/12/2019 ZOSTER VACCINES Completed 11/11/2019, 04/03/2019 HEPATITIS A VACCINES Aged Out No long er eligible based on patient's age to complete this topic HIB VACCINES Aged Out No longer eligi ble based on patient's age to complete this topic MENINGOCOCCAL VACCINES (ACWY) Aged Out No longer eligible based on patient's age to complete this topic MENINGOCOCCAL VACCINES (B) Aged Out N o longer eligible based on patient's age to complete this topic Medical Devices Implanted Type Area Academic Administrator Device Identifier Shelf Expiration Date Model / Serial / Lot Bone Plate 85x3.5mm 7 Hole Tubular One Third With Collar Ss - [id number] Implanted:Qty: 1 on 02/13/2019 by Cuba Horner DO at [facility] Right: Ankle SYNTHES 241.37 / / Screw Bone 3.5x14mm Cortex Self Tapping Fully Threaded Hex Head Ss - [id number] Implanted:Qty: 3 on 02/13/2019 by Cuba Horner DO at [facility] [employer] Right: Ankle SYNTHES 204.814 / / Screw Bone 3.5x16mm Cortex Self Tapping Fully Threaded Hex Head Ss - [id number] Implanted:Qty: 1 on 02/13/2019 by Cuba Horner DO at [facility] Right: Ankle SYNTHES 204.816 / / Screw Bone 3.5x20mm Cortex Self Tapping Fully Threaded Hex Head Ss - [id number] Implanted:Qty: 1 on 02/13/2019 by Cuba Horner DO at [facility] Right: Ankle SYNTHES 204.820 / / Device Fixation Ziptight Ankle Syndesomisis System Ziploop Ss - [id number] Implanted:Qty: 1 on 02/13/2019 by Cuba Horner DO at [facility] Right: Ankle [employer] 03/05/2023 [id number] / / [id number] Procedures Procedure Name Priority Date/Time Associated Diagnosis Comments CBC AND DIFFERENTIAL Routine 10/08/2025 1:25 PM EST Arthropathic psoriasis Encounter for long-term (current) use of medications CBC AND DIFFERENTIAL Routine 10/08/2025 1:25 PM EST Arthropathic psoriasis Encounter for long-term (current) use of medications COMPREHENSIVE METABOLIC PANEL (CMP) Routine 10/08/2025 1:25 PM EST Arthropathic psoriasis Encounter for long-term (current) use of medications C-REACTIVE PROTEIN (CRP) Routine 10/08/2025 1:25 PM EST Arthropathic psoriasis Encounter for long-term (current) use of medications SEDIMENTATION RATE (ESR) Routine 10/08/2025 1:25 PM EST Arthropathic psoriasis Encounter for long-term (current) use of medications TTE COMPREHENSIVE Routine 08/26/2025 1:1 5 PM EDT Other chest pain HM COLONOSCOPY FOR RESULT ENTRY ONLY Routine 06/14/2025 from Last 3 Months or Most Recently Relevant to Health Maintenance Results * (ABNORMAL) Comprehensive Metabolic Panel (CMP) (10/08/2025 1:25 PM EST) Sodium 138 136 - 145 mmol/L 10/08/2025 4:44 PM [facility] Potassium 4.0 3.4 - 5.1 mmol/L 10/08/2025 4:44 PM [facility] Chloride 104 98 - 107 mmol/L 10/08/2025 4:44 PM [facility] CO2 24 20 - 31 mmol/L 10/08/2025 4:44 PM [facility] Anion Gap 10 3 - 17 mmol/L 10/08/2025 4:44 PM [facility] BUN 12 6 - 23 mg/dL 10/08/2025 4:44 PM [facility] Creatinine 0.90 0.60 - 1.30 mg/dL 10/08/2025 4:44 PM [facility] eGFR 90 >59 mL/min/1.7 3m2 10/08/2025 4:44 PM [facility] Comment:Estimated glomerular filtration rate calculated using the CKD-EPI refit equation. Glucose 105(H) 70 - 99 mg/dL 10/08/2025 4:44 PM [facility] Calcium 9.0 8.5 - 10.5 mg/dL 10/08/2025 4:44 PM [facility] AST 20 <40 U/L 10/08/2025 4:44 PM [facility] ALT 19 <50 U/L 10/08/2025 4:44 PM [facility] Alkaline Phosphatase 82 40 - 130 U/L 10/08/2025 4:44 PM [facility] Bilirubin, Total 0.2 0.0 - 1.2 mg/dL 10/08/2025 4:44 PM [facility] Total Protein 6.9 6.4 - 8.3 g/dL 10/08/2025 4:44 PM [facility] Albumin 4.2 3.5 - 5.2 g/dL 10/08/2025 4:44 PM [facility] Globulin 2.7 1.9 - 4.1 g/dL 10/08/2025 4:44 PM [facility] Blood (Blood) Venipuncture / Unknown 10/08/2025 1:25 PM EST 10/08/2025 1:25 PM EST us Donna Scott MD LAB BLOOD BKR O RDERABLES Final Result [facility] [address] [place] [address] * (ABNORMAL) CBC and Differential (10/08/2025 1:25 PM EST) WBC 8.20 4.00 - 11.00 K/uL 10/08/2025 4:10 PM [facility] RBC 4.38(L) 4.50 - 5.90 M/uL 10/08/2025 4:10 PM [facility] Hemoglobin 13.4(L) 13.5 - 17.5 g/dL 10/08/2025 4:10 PM [facility] Hematocrit 39.7(L) 41.0 - 53.0 % 10/08/2025 4:10 PM [facility] MCV 90.6 80.0 - 100.0 fL 10/08/2025 4:10 PM [facility] MCH 30.6 27.0 - 31.0 pg 10/08/2025 4:10 PM [facility] MCHC 33.8 32.0 - 36.0 g/dL 10/08/2025 4:10 PM [facility] MPV 10.3 8.4 - 12.0 fL 10/08/2025 4:10 PM [facility] RDW-CV 13.9 11.5 - 14.5 % 10/08/2025 4:10 PM [facility] PLT 324 150 - 450 K/uL 10/08/2025 4:10 PM [facility] Neutrophils 57.6 % 10/08/2025 4:10 PM [facility] Lymphocytes 15.4 % 10/08/2025 4:10 PM [facility] Monocytes 13.2 % 10/08/2025 4:10 PM [facility] Eosinophils 12.6 % 10/08/2025 4:10 PM [facility] Basophils 1.0 % 10/08/2025 4:10 PM [facility] Imm Grans 0.2 % 10/08/2025 4:10 PM [facility] NRBC 0.0 <=0.0 /100 WBCs 10/08/2025 4:10 PM [facility] Absolute Neutrophils 4.73 1.92 - 7.60 K/uL 10/08/2025 4:10 PM [facility] Absolute Lymphocytes 1.26 0.72 - 4.10 K/uL 10/08/2025 4:10 PM [facility] Absolute Monocytes 1.08 0.16 - 1.10 K/uL 10/08/2025 4:10 PM [facility] Absolute Eosinophils 1.03(H) 0.00 - 0.50 K/uL 10/08/2025 4:10 PM [facility] Absolute Basophils 0.08 0.00 - 0.15 K/uL 10/08/2025 4:10 PM [facility] Absolute Imm Grans 0.02 0.00 - 0.09 K/uL 10/08/2025 4:10 PM [facility] Absolute NRBC 0.00 <=0.00 K cells/uL 10/08/2025 4:10 PM [facility] Absolute Neutrophils 4.73 1.92 - 7.60 K/uL 10/08/2025 4:10 PM [facility] Comment:Automated cell count . Manual ANC may differ if performed. Diff Type Auto 10/08/2025 4:10 PM [facility] Blood (Blood) Venipuncture / Unknown 10/08/2025 1:25 PM EST 10/08/2025 1:25 PM EST us Donna Scott MD LAB BLOOD BKR O JOSÉ MIGUEL Final Result [facility] [address] [place] [address] * (ABNORMAL) Erythrocyte Sedimentation Rate (ESR) (10/08/2025 1:25 PM EST) ESR 21(H) 0 - 20 mm/h 10/08/2025 4:18 PM EST [facility] Blood (Blood) Venipuncture / Unknown 10/08/2025 1:25 PM EST 10/08/2025 1:25 PM EST Donna Scott MD LAB BLOOD BKR O RDERABLES Final Result Performing Organization Address [facility] [[email or web address]] Co de Phone Number [address] [address] * C-Reactive Protein (CRP) (10/08/2025 1:25 PM EST) C Reactive Protein 7.9 <10.0 mg/L 10/08/2025 4:44 PM EST [facility] Comment:NOTE: This reference range is for the evaluation of inflammation. Order CRP, High Sensitivity for cardiac risk status evaluation. Blood (Blood) Venipuncture / Unknown 10/08/2025 1:25 PM EST 10/08/2025 1:25 PM EST Donna Scott MD LAB BLOOD BKR O RDERABLES Final Result Performing Organization Address [facility] [[email or web address]] Co de Phone Number [address] [phone] * TTE COMPREHENSIVE (08/26/2025 1:15 PM EDT) Body Surface Area 1.93 m2 Height 173 cm Weight 79 kg Systolic BP 130 mmHg Diastolic BP 82 mmHg Aortic Valve Mean Gradient 3 mmHg Aortic Valve Time Velocity Integral 230.0 mm Aortic Valve Peak Velocity 1.2 m/s Aortic Valve Peak Gradient 6 mmHg Aortic Sinus Diameter 35 <40 mm Ascending Aorta Diameter 34 <36 mm Inferior Vena Cava Diameter 17 <21 mm Interventricular Septum Thickness 9 6 - 11 mm Left Ventricle Internal Diameter End Diastole 51 42 - 58 mm Left Ventricle Internal Diameter End Systole 34 <40 mm Left Ventricular Outflow Tract Diameter 22.0 mm LVOT VTI REST 190.0 mm Left Ventricular Outflow Tract Velocity 1.1 m/s Left Ventricular Outflow Tract Gradient at Rest 5 mmHg Left Ventricular Posterior Wall Thickness 8 6 - 11 mm Left Ventricle Ea Lateral Wave Speed 10.1 cm/s Left Ventricle Ea Septal Wave Speed 9.6 cm/s Ejection Fraction 65 50 - 75 Percent Left Ventricle A Wave Speed 75.4 cm/s Left Ventricle E Wave Speed 41.1 cm/s Pulmonary Valve Peak Velocity 1.3 m/s Pulmonary Valve Peak Gradient 7 mmHg Right Ventricle Basal Diameter 26 25 - 41 mm Tricuspid Valve Peak Velocity 2.5 m/s Raw LV EF% 56 % MV E/E' Tissue Velocity Lateral 4.07 Relative Wall Thickness 0.31 0.22 - 0.42 Left Ventricle indexed to BSA 78.7 g/m2 MV E/A ratio 0.5 MV E/e' septal 4.28 Left Ventricle E/e' Average 4.2 Aortic Valve Prosthetic Peak Gradient 6 mmHg Aortic Valve Prosthetic Mean Gradient 3 mmHg Aortic Valve Sinus Index by BSA 18 mm/m2 Aorta Sinus Index by Height 2.02 cm/m Aorta Sinus CSA index by Height 5.56 cm2/m Ascending Aorta Index 18 mm/m2 Asc Aorta CSA Index by Height 5.25 cm2/m Right Ventricle to Right Atrium Pressure Gradient 25 mmHg Right Ventricle Peak Systolic Pressure (Assuming RAP 10) 35 mmHg MGB CV ECHO TV RVSP (ASSUMING RAP OF 5) 30 mmHg RVSP (Exclusive of RAP) 25 mmHg Pulmonic Valve Prosthetic Peak Gradient 7 mmHg MGB CV AV DIMENSIONLESS INDEX (PEAK) - STRESS ECHO DOBUT - REST 0.92 Ascending Aorta Index 18 mm Aortic Sinus Index 18 mm Ascending Aorta Diameter 18 mm Aortic Valve Sinus Index 1 18 20 - 32 mm AO ASC DIAM BSA INDEX 17.62 Echo E/Ea 4.28 Left Atrial Volume Index 22 16 - 34 mL/m2 Right Ventricle Peak Systolic Pressure 28 mmHg Right Ventricle TAPSE 24 >=17 mm Right Ventricle Pulse Doppler S Wave 11.0 >=9.5 cm/s Left Atrial Volume 42 mL Left Atrial Volume Index by Height 24 mL/m Right Atrium Pressure Estimated 3 mmHg Anatomical Region Laterality Modality Heart Ultrasound Narrative 08/27/2025 9:13 AM EDT Images from the original result were not included. 1. The indication is chest pain. The estimated ejection fraction of left ventricle is normal at 60 to 65%. Diastolic function is normal left ventricular thickness is normal and regional wall motion is normal. 2. Normal RV size and function. 3. Trileaflet aortic valve there is no evidence of aortic stenosis, the ascending aortic root is normal size. 4. Trace mitral and trace to mild tricuspid sufficiency, the PA pressure is normal. 5. Normal pericardium and there is no prior echo available for comparison. Left Ventricle The left ventricle is normal in size. There is normal wall thickness. There is normal left ventricular systolic function. The LV ejection fraction is 65%. There are no wall motion abnormalities. LV diastolic function appears within normal limits for age. The E/A ratio is 0.5. The e' septal wave velocity is 9.6 cm/s. The e' lateral wave velocity is 10.1 cm/s. The average E/e' ratio is 4.2. Right Ventricle The right ventricle is normal in size. The RV basal dimension is 26 mm. There is normal right ventricular systolic function. TAPSE is 24 mm. RV S' wave is 11.0 cm/s. Left Atrium The left atrium is normal in size. The left atrial volume index by BSA is 22 mL/m2. Right Atrium The right atrium is normal in size. The IVC is normal in size with normal inspiratory collapse. The IVC diameter is 17 mm. Mitral Valve The mitral valve appears normal. There is no mitral stenosis. There is trace mitral regurgitation. Tricuspid Valve The tricuspid valve appears normal. There is no tricuspid stenosis. There is trace to mild tricuspid regurgitation. The RV systolic pressure was calculated at 28 mmHg (using TR peak velocity of 2.5 m/s and assuming an RA pressure of 3 mmHg). Aortic Valve The aortic valve is tricuspid. There is no aortic stenosis. There is trace aortic regurgitation. The visualized portions of the thoracic aorta appear normal in size. Pulmonic Valve The pulmonic valve appears normal. There is no pulmonic stenosis. There is trace pulmonic regurgitation. Pericardium The pericardium appears normal. General Findings The image quality was adequate. Technique(s) used in the evaluation: Color flow Doppler and Spectral Doppler. The predominant rhythm during the study was sinus. Comparison Findings There are no prior studies for comparison. IAS/IVS There is increased mobility of the interatrial septum. Hien MARTINEZ CV ECHO ORDERABLES Final Result * COLONOSCOPY FOR RESULT ENTRY ONLY (06/14/2025) HM Colonoscopy External us Historical Provider HEALTH MAINTENANCE Final Result from Last 3 Months or Most Recently Relevant to Health Maintenance Insurance MEDICARE PART A & B [facility] MEDICARE SUPPLEMENT MEDICARE PART A & B [facility] MEDICARE SUPPLEMENT MEDICARE PART A & B Member Subscriber Plan / Payer ( fective 2016-Present) Name:Tiburcio Flores Member ID:[id number] Relation to Subscriber:Self Name:Tiburcio Flores Subscriber ID:[id number] Payer ID:[id number] Group ID:Not on file Type:Medicare Address: [employer] [place] [phone] [facility] MEDICARE SUPPLEMENT MEDICARE PART A & B [employer] MEDICARE SUPPLEMENT MEDICARE PART A & B [employer] MEDICARE SUPPLEMENT [place]IC[place] PART A [place] [phone] [facility] MEDICARE SUPPLEMENT MEDICARE PART A & B [facility] MEDICARE SUPPLEMENT MEDICARE PART A & B Member Subscriber Plan / Payer ( fective 2016-Present) Name:Mark Tiburcio Member ID:[id number] Relation to Subscriber:Self Name:Mark Tiburcio Subscriber ID:[id number] Payer ID:[id number] Group ID:Not on file Type:Medicare Address: [employer] [place] [address] [facility] EXTENSION MEDICARE SUPPLEMENT MEDICARE PART A & B Member Subscriber Plan / Payer (Ef fective 2016-Present) Name:Tiburcio Flores Member ID:[id number] Relation to Subscriber:Self Name:Tiburcio Flores Subscriber ID:[id number] Payer ID:[id number] Group ID:Not on file Type:Medicare Address: [facility] Contractors_AID [facility] [address] [address] [facility] MEDICARE SUPPLEMENT Advance Directives For more information, please contact: [phone] (9AM - 5PM [facility], Saturday-Saturday) Documents on File Type Date Recorded Patient Cashier Gambling Expl anation Healthcare Proxy 02/16/2019 1:36 PM * Full Code (Presumed) (Latest Code Status on File) Date Activated Date Inactivated Comments 02/13/2019 11:12 AM 02/13/2019 6:36 PM Care Teams Stock Analyst Relationship Specialty Start Date End Date Bell Choi PA-C [address] [place] [phone] [email or web address] PCP - General Cardiology 10/25/22 Additional Source Comments The information contained in this document represents components of the legal health record. It is not the complete legal health record.[facility]
--- OUTSIDE RECORDS SUMMARY | 2025-10-20 16:51 | XMS_ITS | Encounter Summary ---
Author Organization [facility] Address [address] [place] [address] Phone Care Team Providers Care Sterilisation Technician Name Role Phone Bell Choi PA-C Primary Care Provider [phone] Reason for Referral * Outpatient Procedure - Closed Specialty Diagnoses / Procedures Referred By Contaleksandra t Referred To Contact Radiology Diagnoses Other chest pain Procedures Adult Echo TTE Hien Mathews PA [address] [place] [address] Phone: tel: fax: [email or web address] Referral ID Status Reason Start Date Expiration Date Visits Re quested Visits Authorized [id number] Closed 07/22/2025 07/22/2026 1 1 Encounter Details Date Type Department Care Team (Latest Contact Info) Description 07/22/2025 Transcribe Orders Virtual Department [address] [place] [address] Hien Mathews PA [address] [place] [phone] [email or web address] Other chest pain (Primary Dx) Social History Tobacco Use Types Packs/Day Years [...] Description 12/15/2025 11:30 AM EST Office Visit [facility] [address] [place] [address] Unknown, Unknown, Yara Roberts PA-C [address] [address] [email or web address] documented as of this encounter Results * TTE COMPREHENSIVE (08/26/2025 1:15 PM EDT) [...] is increased mobility of the interatrial septum. us Hien MARTINEZ CV ECHO ORDERABLES Final Result documented in this encounter Visit Diagnoses Diagnosis Other chest pain- Primary Other chest pain documented in this encounter Care Teams Sterilisation Technician Relationship Specialty Start Date End Date Bell Choi PA-C [address] [place] [phone] [email or web address] PCP - General Cardiology 10/25/22 documented as of this encounter Additional Source Comments The information contained in this document represents components of the legal health record. It is not the complete legal health record.[facility]
== END 2025-10-20 15:05 | disposition home or self-care (01) ==
LOC: HO.RHES 13:46
PROVIDERS: PCP Internal Medicine; Visit Provider Student in an Organized Health Care Education/Training Program
DX: L40.50 Arthropathic psoriasis, unspecified (principal); Z79.631 Long term (current) use of antimetabolite agent; Z51.81 Encounter for therapeutic drug level monitoring; Z79.620 Long term (current) use of immunosuppressive biologic
CPT/HCPCS: 99214; G2211

== ENCOUNTER → 2025-10-20 13:45 | Outpatient (BNVA) | payer MEDICARE, OTHER, SELFPAY | PROVIDERS: PCP Internal Medicine; Visit Provider Student in an Organized Health Care Education/Training Program | DX: L40.50 Arthropathic psoriasis, unspecified (principal); Z79.631 Long term (current) use of antimetabolite agent; Z79.620 Long term (current) use of immunosuppressive biologic | CPT/HCPCS: 99212 ==